=== PATIENT | female | born 1960 | race Caucasian/White ===

== ENCOUNTER 2021-07-13 16:50 | Inpatient (IN) | payer OTHER, SELFPAY ==
[2021-07-13] MEDS ORDERED: Ondansetron PF 4 MG/2 ML Vial IVP PRN (18:18)
[2021-07-13 19:36] LABS: ALT (SGPT) 45 U/L (8-55); AST (SGOT) 27 U/L (5-34); Albumin 3.2 g/dL (3.5-5.0); Alkaline Phosphatase 74 U/L (40-110); Anion Gap 19 mmol/L (10-20); BUN (Urea Nitrogen) 55 mg/dL (9.8-20.1); Bilirubin, Total 0.9 mg/dL (0.2-1.2); Calc. Creatinine Clearance 17 mL/min (70-130); Calcium 8.8 mg/dL (7.8-10.44); Carbon Dioxide 26 mmol/L (22-29); Chloride 103 mmol/L (98-107); Globulin 3.2 g/dL (2.4-3.5); Glucose 105 mg/dL (70-105); Potassium 3.2 mmol/L (3.5-5.1); Protein, Total 6.4 g/dL (6.0-8.3); Sodium 145 mmol/L (136-145)
[2021-07-14 04:30] LABS: Anion Gap 21 mmol/L (10-20); BUN (Urea Nitrogen) 57 mg/dL (9.8-20.1); Calc. Creatinine Clearance 16 mL/min (70-130); Calcium 9.1 mg/dL (7.8-10.44); Carbon Dioxide 21 mmol/L (22-29); Chloride 103 mmol/L (98-107); Glucose 95 mg/dL (70-105); Potassium 3.3 mmol/L (3.5-5.1); Sodium 142 mmol/L (136-145)
[2021-07-14] MEDS ORDERED: hydrALAZINE 20 MG/ML VIAL SLOW IVP PRN (05:21)
[2021-07-14] MEDS ORDERED: Potassium Bicarbonate/Cit Ac 20 MEQ TAB PO SCH (05:30)
[2021-07-14 05:46] LABS: Magnesium 1.9 mg/dL (1.6-2.6)
[2021-07-14] MEDS: Carvedilol 25 MG TAB PO SCH ×3 (05:57→22:37)
[2021-07-14 06:22] LABS: #Basophils 0.1 thou/uL (0.0-0.2); #Eosinphils 0.1 thou/uL (0.0-0.7); #Lymphocytes 1.3 thou/uL (1.20-3.40); #Neutrophils 10.2 thou/uL (1.40-6.50); %Basophils 0.4 % (0.0-1.0); %Eosinophils 0.6 % (0.0-10.0); %Lymphocytes 10.2 % (21.0-51.0); %Monocytes 8.1 % (0.0-10.0); %Neutrophils 80.6 % (42.0-75.0); Hemoglobin 13.2 g/dL (12.0-16.0); Mean Corpuscular HGB CONC 29.8 g/dL (32.0-36.0); Mean Corpuscular Hemoglobin 29.6 pg (27.0-31.0); Mean Corpuscular Volume 99.2 fL (78.0-98.0); Mean Platelet Volume 8.1 fL (7.4-10.4); Platelet Count 367 thou/uL (130-400); RBC Distribution Width 15.1 % (11.5-14.5); RBC Morphology Normal; Red Blood Cell (RBC) Count 4.45 mill/uL (4.20-5.40); White Blood Cell (WBC) Count 12.7 thou/uL (4.8-10.8)
[2021-07-14] MEDS ORDERED: Apixaban 5 MG TAB PO SCH (09:00)
[2021-07-14] MEDS: Amiodarone 200 MG TAB PO SCH ×2 (09:14→21:32)
[2021-07-14] MEDS: Polyethylene Glycol 3350 17 GM Packet PER TUBE SCH (09:14)
[2021-07-14] MEDS: hydrALAZINE 25 MG TAB PO SCH ×3 (09:14→21:33)
[2021-07-14] MEDS: Clopidogrel Bisulfate 75 MG TAB PO SCH (09:14)
[2021-07-14] MEDS ORDERED: Potassium Chloride 20 MEQ TAB PO SCH (09:27)
[2021-07-14 20:58] LABS: Anion Gap 18 mmol/L (10-20); BUN (Urea Nitrogen) 65 mg/dL (9.8-20.1); Calc. Creatinine Clearance 16 mL/min (70-130); Calcium 8.7 mg/dL (7.8-10.44); Carbon Dioxide 23 mmol/L (22-29); Chloride 105 mmol/L (98-107); Glucose 121 mg/dL (70-105); Potassium 3.7 mmol/L (3.5-5.1); Sodium 142 mmol/L (136-145)
[2021-07-14] MEDS: Furosemide 100 MG/10 ML VIAL SLOW IVP SCH (21:24)
[2021-07-14] MEDS: Apixaban 5 MG TAB PO SCH (21:33)
[2021-07-15 02:20] LABS: Bilirubin Negative (Negative); Blood, Urine 1+ (Negative); Clarity Turbid (Clear); Glucose, Urine (Dipstick) Normal (Negative); Ketone, Urine Negative (Negative); Leukocyte 500 Leu/uL (Negative); Nitrite Negative (Negative); Protein, Urine (Dipstick) 20 mg/dL (Neg-Trace); RBC/HPF Greater than 50 HPF (0-3); Specific Gravity, Urine 1.011 (1.002-1.036); Squamous Epithelial 0-3 HPF (0-3); Transitional Epithelial 0-3 HPF (None Seen); Urobilinogen Normal mg/dL (Less than 2); WBC/HPF Greater than 50 HPF (0-3)
[2021-07-15 02:22] LABS: Bacteria/HPF 1+ HPF (None Seen)
[2021-07-15] MEDS: Furosemide 100 MG/10 ML VIAL SLOW IVP SCH ×3 (03:53→21:07)
[2021-07-15 05:08] LABS: Calcium 9.2 mg/dL (7.8-10.44); Chloride 103 mmol/L (98-107); Cholesterol 183 mg/dl (< 200 Desired); Potassium 3.5 mmol/L (3.5-5.1); Sodium 140 mmol/L (136-145); Triglycerides 196 mg/dL (Less than 150)
[2021-07-15 05:09] LABS: #Eosinphils 0.2 thou/uL (0.0-0.7); #Lymphocytes 1.4 thou/uL (1.20-3.40); #Monocytes 1.1 thou/uL (0.11-0.59); #Neutrophils 9.1 thou/uL (1.40-6.50); %Basophils 0.3 % (0.0-1.0); %Eosinophils 1.3 % (0.0-10.0); %Lymphocytes 11.7 % (21.0-51.0); %Monocytes 9.1 % (0.0-10.0); %Neutrophils 77.7 % (42.0-75.0); Hemoglobin 11.8 g/dL (12.0-16.0); Mean Corpuscular HGB CONC 31.1 g/dL (32.0-36.0); Mean Corpuscular Hemoglobin 30.5 pg (27.0-31.0); Mean Corpuscular Volume 98.3 fL (78.0-98.0); Mean Platelet Volume 8.4 fL (7.4-10.4); Platelet Count 317 thou/uL (130-400); RBC Distribution Width 15.4 % (11.5-14.5); Red Blood Cell (RBC) Count 3.86 mill/uL (4.20-5.40); White Blood Cell (WBC) Count 11.7 thou/uL (4.8-10.8)
[2021-07-15 05:18] LABS: BUN (Urea Nitrogen) 65 mg/dL (9.8-20.1); Calc. Creatinine Clearance 17 mL/min (70-130); Carbon Dioxide 22 mmol/L (22-29); Glucose 123 mg/dL (70-105); HDL Cholesterol 33 mg/dL (>60 Neg Risk)
[2021-07-15] MEDS: Carvedilol 25 MG TAB PO SCH ×3 (06:14→21:09)
[2021-07-15 07:13] LABS: Anion Gap 25 mmol/L (10-20)
[2021-07-15 07:17] LABS: Cardiac Risk 5.4 (Less than 4.5); LDL Cholesterol, Calculated 113 mg/dL
[2021-07-15] MEDS: Polyethylene Glycol 3350 17 GM Packet PER TUBE SCH (08:32)
[2021-07-15] MEDS: Apixaban 5 MG TAB PO SCH ×2 (09:42→21:08)
[2021-07-15] MEDS: Amiodarone 200 MG TAB PO SCH ×2 (09:42→21:09)
[2021-07-15] MEDS: Clopidogrel Bisulfate 75 MG TAB PO SCH (09:42)
[2021-07-15] MEDS: hydrALAZINE 25 MG TAB PO SCH ×3 (09:42→21:09)
[2021-07-15] MEDS: cefTRIAXone\\ROCEPHIN 1 GM in Sodium Chloride 0.9% 100 ML IVPB SCH (11:28)
[2021-07-15] MEDS: Atorvastatin Calcium 40 MG TAB PER TUBE SCH (21:09)
[2021-07-16 05:02] LABS: #Basophils 0.1 thou/uL (0.0-0.2); #Eosinphils 0.1 thou/uL (0.0-0.7); #Lymphocytes 1.3 thou/uL (1.20-3.40); #Neutrophils 10.9 thou/uL (1.40-6.50); %Basophils 0.5 % (0.0-1.0); %Lymphocytes 9.7 % (21.0-51.0); %Monocytes 7.3 % (0.0-10.0); %Neutrophils 81.5 % (42.0-75.0); Hemoglobin 11.1 g/dL (12.0-16.0); Mean Corpuscular HGB CONC 32.1 g/dL (32.0-36.0); Mean Corpuscular Hemoglobin 30.8 pg (27.0-31.0); Mean Corpuscular Volume 95.9 fL (78.0-98.0); Mean Platelet Volume 8.2 fL (7.4-10.4); Platelet Count 322 thou/uL (130-400); RBC Distribution Width 15.1 % (11.5-14.5); Red Blood Cell (RBC) Count 3.61 mill/uL (4.20-5.40); White Blood Cell (WBC) Count 13.4 thou/uL (4.8-10.8)
[2021-07-16 05:19] LABS: Anion Gap 16 mmol/L (10-20); BUN (Urea Nitrogen) 85 mg/dL (9.8-20.1); Calc. Creatinine Clearance 17 mL/min (70-130); Calcium 9.1 mg/dL (7.8-10.44); Carbon Dioxide 30 mmol/L (22-29); Chloride 100 mmol/L (98-107); Glucose 135 mg/dL (70-105); Sodium 143 mmol/L (136-145)
[2021-07-16 05:21] LABS: Potassium 2.9 mmol/L (3.5-5.1)
[2021-07-16] MEDS ORDERED: Metoprolol Tartrate 5 MG/5 ML VIAL IVP PRN (05:57)
[2021-07-16] MEDS: Furosemide 100 MG/10 ML VIAL SLOW IVP SCH ×2 (06:05→14:22)
[2021-07-16] MEDS ORDERED: Electrolyte Replacement Protocol FS PRN ×2 (06:07→06:15)
[2021-07-16] MEDS: Carvedilol 25 MG TAB PO SCH ×3 (06:33→21:40)
[2021-07-16] MEDS ORDERED: Potassium Chloride 20 MEQ in Premix Bag 1 BAG IVPB SCH (09:00)
[2021-07-16] MEDS ORDERED: Albumin 25% 25 GM/100 ML BOT IVPB SCH (09:00)
[2021-07-16] MEDS: hydrALAZINE 25 MG TAB PO SCH ×4 (10:28→21:40)
[2021-07-16] MEDS: Clopidogrel Bisulfate 75 MG TAB PO SCH (10:28)
[2021-07-16] MEDS: Polyethylene Glycol 3350 17 GM Packet PER TUBE SCH (10:30)
[2021-07-16] MEDS: Amiodarone 200 MG TAB PO SCH ×2 (10:30→21:40)
[2021-07-16] MEDS: Apixaban 5 MG TAB PO SCH ×2 (10:30→21:40)
[2021-07-16] MEDS: Albumin 25% 25 GM/100 ML BOT IVPB SCH ×3 (10:31→23:13)
[2021-07-16 12:33] LABS: Anion Gap 16 mmol/L (10-20); BUN (Urea Nitrogen) 88 mg/dL (9.8-20.1); Calc. Creatinine Clearance 17 mL/min (70-130); Calcium 9.2 mg/dL (7.8-10.44); Carbon Dioxide 30 mmol/L (22-29); Chloride 97 mmol/L (98-107); Glucose 169 mg/dL (70-105); Sodium 140 mmol/L (136-145)
[2021-07-16] MEDS: cefTRIAXone\\ROCEPHIN 1 GM in Sodium Chloride 0.9% 100 ML IVPB SCH (12:34)
[2021-07-16 12:39] LABS: Potassium 2.7 mmol/L (3.5-5.1)
[2021-07-16] MEDS: Atorvastatin Calcium 40 MG TAB PER TUBE SCH (21:40)
[2021-07-17] MEDS: Albumin 25% 25 GM/100 ML BOT IVPB SCH (03:47)
[2021-07-17 04:27] LABS: #Basophils 0.1 thou/uL (0.0-0.2); #Eosinphils 0.2 thou/uL (0.0-0.7); #Monocytes 0.7 thou/uL (0.11-0.59); #Neutrophils 6.9 thou/uL (1.40-6.50); %Basophils 0.7 % (0.0-1.0); %Eosinophils 1.9 % (0.0-10.0); %Lymphocytes 11.6 % (21.0-51.0); %Monocytes 7.5 % (0.0-10.0); %Neutrophils 78.2 % (42.0-75.0); Hemoglobin 9.2 g/dL (12.0-16.0); Mean Corpuscular Hemoglobin 31.3 pg (27.0-31.0); Platelet Count 234 thou/uL (130-400); RBC Distribution Width 14.6 % (11.5-14.5); Red Blood Cell (RBC) Count 2.93 mill/uL (4.20-5.40); White Blood Cell (WBC) Count 8.9 thou/uL (4.8-10.8)
[2021-07-17 05:18] LABS: Anion Gap 19 mmol/L (10-20); BUN (Urea Nitrogen) 87 mg/dL (9.8-20.1); Calc. Creatinine Clearance 17 mL/min (70-130); Calcium 9.4 mg/dL (7.8-10.44); Carbon Dioxide 27 mmol/L (22-29); Chloride 99 mmol/L (98-107); Glucose 103 mg/dL (70-105); Magnesium 2.2 mg/dL (1.6-2.6); Sodium 142 mmol/L (136-145)
[2021-07-17 05:29] LABS: Potassium 2.8 mmol/L (3.5-5.1)
[2021-07-17] MEDS: Furosemide 100 MG/10 ML VIAL SLOW IVP SCH (06:26)
[2021-07-17] MEDS ORDERED: Potassium Chloride 20 MEQ TAB PO SCH (06:30)
[2021-07-17] MEDS ORDERED: Potassium Bicarbonate/Cit Ac 20 MEQ TAB PO SCH (06:30)
[2021-07-17] MEDS: Carvedilol 25 MG TAB PO SCH ×3 (06:32→22:08)
[2021-07-17] MEDS ORDERED: Furosemide 100 MG/10 ML VIAL SLOW IVP SCH (09:00)
[2021-07-17] MEDS: hydrALAZINE 25 MG TAB PO SCH ×3 (09:37→22:07)
[2021-07-17] MEDS: Amiodarone 200 MG TAB PO SCH ×2 (09:38→22:09)
[2021-07-17] MEDS: Polyethylene Glycol 3350 17 GM Packet PER TUBE SCH (09:39)
[2021-07-17] MEDS: Clopidogrel Bisulfate 75 MG TAB PO SCH (09:49)
[2021-07-17] MEDS: Apixaban 5 MG TAB PO SCH (09:49)
[2021-07-17] MEDS: cefTRIAXone\\ROCEPHIN 1 GM in Sodium Chloride 0.9% 100 ML IVPB SCH (11:16)
[2021-07-17 14:33] LABS: Potassium 3.2 mmol/L (3.5-5.1)
[2021-07-17] MEDS: Potassium Bicarbonate/Cit Ac 20 MEQ TAB PO SCH (18:12)
[2021-07-17] MEDS: Atorvastatin Calcium 40 MG TAB PER TUBE SCH (22:07)
[2021-07-18 04:50] LABS: #Basophils 0.1 thou/uL (0.0-0.2); #Eosinphils 0.1 thou/uL (0.0-0.7); #Lymphocytes 1.3 thou/uL (1.20-3.40); #Monocytes 0.8 thou/uL (0.11-0.59); #Neutrophils 8.8 thou/uL (1.40-6.50); %Basophils 0.6 % (0.0-1.0); %Lymphocytes 11.6 % (21.0-51.0); %Monocytes 7.3 % (0.0-10.0); %Neutrophils 79.6 % (42.0-75.0); Hemoglobin 9.5 g/dL (12.0-16.0); Mean Corpuscular HGB CONC 32.6 g/dL (32.0-36.0); Mean Platelet Volume 8.4 fL (7.4-10.4); Platelet Count 233 thou/uL (130-400); RBC Distribution Width 14.9 % (11.5-14.5); Red Blood Cell (RBC) Count 3.07 mill/uL (4.20-5.40); White Blood Cell (WBC) Count 11.1 thou/uL (4.8-10.8)
[2021-07-18] MEDS: Carvedilol 25 MG TAB PO SCH ×3 (05:43→20:30)
[2021-07-18 05:48] LABS: Chloride 101 mmol/L (98-107); Potassium 3.9 mmol/L (3.5-5.1); Sodium 141 mmol/L (136-145)
[2021-07-18 05:49] LABS: Glucose 122 mg/dL (70-105)
[2021-07-18 05:51] LABS: Carbon Dioxide 19 mmol/L (22-29)
[2021-07-18 05:53] LABS: BUN (Urea Nitrogen) 100 mg/dL (9.8-20.1); Calc. Creatinine Clearance 15 mL/min (70-130)
[2021-07-18 05:58] LABS: Anion Gap 25 mmol/L (10-20)
[2021-07-18] MEDS: Clopidogrel Bisulfate 75 MG TAB PO SCH (09:33)
[2021-07-18] MEDS: Potassium Bicarbonate/Cit Ac 20 MEQ TAB PO SCH ×2 (09:34→17:43)
[2021-07-18] MEDS: Amiodarone 200 MG TAB PO SCH ×2 (09:34→20:29)
[2021-07-18] MEDS: hydrALAZINE 25 MG TAB PO SCH ×3 (09:34→20:30)
[2021-07-18] MEDS: Sodium Chloride 0.9% 1,000 ML IV SCH ×2 (09:36→23:41)
[2021-07-18] MEDS: Polyethylene Glycol 3350 17 GM Packet PER TUBE SCH (09:37)
[2021-07-18] MEDS: cefTRIAXone\\ROCEPHIN 1 GM in Sodium Chloride 0.9% 100 ML IVPB SCH (11:20)
[2021-07-18] MEDS: Atorvastatin Calcium 40 MG TAB PER TUBE SCH (20:31)
[2021-07-19 04:35] LABS: #Eosinphils 0.1 thou/uL (0.0-0.7); #Lymphocytes 1.2 thou/uL (1.20-3.40); #Monocytes 0.8 thou/uL (0.11-0.59); #Neutrophils 7.9 thou/uL (1.40-6.50); %Basophils 0.2 % (0.0-1.0); %Eosinophils 1.4 % (0.0-10.0); %Lymphocytes 11.5 % (21.0-51.0); %Monocytes 8.3 % (0.0-10.0); %Neutrophils 78.7 % (42.0-75.0); Hemoglobin 9.1 g/dL (12.0-16.0); Mean Corpuscular Hemoglobin 30.1 pg (27.0-31.0); Mean Corpuscular Volume 97.1 fL (78.0-98.0); Mean Platelet Volume 8.6 fL (7.4-10.4); Platelet Count 197 thou/uL (130-400); RBC Distribution Width 14.7 % (11.5-14.5); Red Blood Cell (RBC) Count 3.01 mill/uL (4.20-5.40); White Blood Cell (WBC) Count 10.1 thou/uL (4.8-10.8)
[2021-07-19 04:51] LABS: Anion Gap 15 mmol/L (10-20); BUN (Urea Nitrogen) 95 mg/dL (9.8-20.1); Calc. Creatinine Clearance 19 mL/min (70-130); Calcium 9.5 mg/dL (7.8-10.44); Carbon Dioxide 27 mmol/L (22-29); Chloride 103 mmol/L (98-107); Glucose 122 mg/dL (70-105); Potassium 3.3 mmol/L (3.5-5.1); Sodium 142 mmol/L (136-145)
[2021-07-19] MEDS: Carvedilol 25 MG TAB PO SCH ×3 (06:05→22:05)
[2021-07-19] MEDS ORDERED: Midazolam HCl 2 mg/2 ml Vial ONE (08:33)
[2021-07-19] MEDS ORDERED: fentaNYL Citrate/PF 100 MCG/2 ML SYRINGE ONE (08:33)
[2021-07-19] MEDS: Amiodarone 200 MG TAB PO SCH ×2 (09:00→20:59)
[2021-07-19] MEDS: Sodium Chloride 0.9% 1,000 ML IV SCH ×3 (09:00→23:22)
[2021-07-19] MEDS: Potassium Bicarbonate/Cit Ac 20 MEQ TAB PO SCH ×2 (09:00→18:23)
[2021-07-19] MEDS: hydrALAZINE 25 MG TAB PO SCH ×3 (09:00→20:59)
[2021-07-19] MEDS ORDERED: Potassium Chloride 20 MEQ in Premix Bag 1 BAG IVPB SCH (09:00)
[2021-07-19] MEDS: Clopidogrel Bisulfate 75 MG TAB PO SCH (09:00)
[2021-07-19] MEDS: Polyethylene Glycol 3350 17 GM Packet PER TUBE SCH (09:01)
[2021-07-19] MEDS: cefTRIAXone\\ROCEPHIN 1 GM in Sodium Chloride 0.9% 100 ML IVPB SCH (14:00)
[2021-07-19] MEDS: Atorvastatin Calcium 40 MG TAB PER TUBE SCH (20:58)
[2021-07-20 05:10] LABS: Anion Gap 13 mmol/L (10-20); BUN (Urea Nitrogen) 86 mg/dL (9.8-20.1); Calc. Creatinine Clearance 21 mL/min (70-130); Carbon Dioxide 29 mmol/L (22-29); Chloride 108 mmol/L (98-107); Glucose 129 mg/dL (70-105); Potassium 3.5 mmol/L (3.5-5.1); Sodium 146 mmol/L (136-145)
[2021-07-20] MEDS: Carvedilol 25 MG TAB PO SCH ×3 (05:33→20:34)
[2021-07-20 05:42] LABS: Hemoglobin 8.7 g/dL (12.0-16.0); Lymphocytes 9 % (21-51); MDiff Complete? YES; Mean Corpuscular HGB CONC 31.8 g/dL (32.0-36.0); Mean Corpuscular Hemoglobin 30.9 pg (27.0-31.0); Mean Corpuscular Volume 97.1 fL (78.0-98.0); Mean Platelet Volume 9.3 fL (7.4-10.4); Monocytes 6 % (0-10); Neutrophil 85 % (42-75); Platelet Count 164 thou/uL (130-400); Platelet Morphology Comment Appears Adequate; RBC Distribution Width 14.6 % (11.5-14.5); RBC Morphology Normal; Red Blood Cell (RBC) Count 2.83 mill/uL (4.20-5.40); White Blood Cell (WBC) Count 9.7 thou/uL (4.8-10.8)
[2021-07-20] MEDS: Clopidogrel Bisulfate 75 MG TAB PO SCH (09:55)
[2021-07-20] MEDS: Amiodarone 200 MG TAB PO SCH ×2 (09:55→20:33)
[2021-07-20] MEDS: hydrALAZINE 25 MG TAB PO SCH ×3 (09:55→20:33)
[2021-07-20] MEDS: Potassium Bicarbonate/Cit Ac 20 MEQ TAB PO SCH ×2 (09:55→16:37)
[2021-07-20] MEDS: 1/2 NS w/KCL 20 mEq 1,000 ML IV SCH ×3 (09:56→21:41)
[2021-07-20] MEDS: Polyethylene Glycol 3350 17 GM Packet PER TUBE SCH (09:56)
[2021-07-20] MEDS: cefTRIAXone\\ROCEPHIN 1 GM in Sodium Chloride 0.9% 100 ML IVPB SCH (10:29)
[2021-07-20] MEDS: Atorvastatin Calcium 40 MG TAB PER TUBE SCH (20:34)
[2021-07-20] MEDS: Apixaban 5 MG TAB PO SCH (20:34)
[2021-07-20 23:44] LABS: Anion Gap 12 mmol/L (10-20); BUN (Urea Nitrogen) 76 mg/dL (9.8-20.1); Calc. Creatinine Clearance 24 mL/min (70-130); Calcium 8.8 mg/dL (7.8-10.44); Carbon Dioxide 26 mmol/L (22-29); Chloride 107 mmol/L (98-107); Glucose 186 mg/dL (70-105); Potassium 4.2 mmol/L (3.5-5.1); Sodium 141 mmol/L (136-145)
[2021-07-21 04:34] LABS: Hemoglobin 8.1 g/dL (12.0-16.0); Mean Corpuscular HGB CONC 32.1 g/dL (32.0-36.0); Mean Corpuscular Hemoglobin 30.9 pg (27.0-31.0); Mean Corpuscular Volume 96.4 fL (78.0-98.0); Platelet Count 159 thou/uL (130-400); RBC Distribution Width 14.7 % (11.5-14.5); Red Blood Cell (RBC) Count 2.61 mill/uL (4.20-5.40)
[2021-07-21 04:52] LABS: Anion Gap 11 mmol/L (10-20); BUN (Urea Nitrogen) 73 mg/dL (9.8-20.1); Calc. Creatinine Clearance 26 mL/min (70-130); Calcium 8.7 mg/dL (7.8-10.44); Carbon Dioxide 27 mmol/L (22-29); Chloride 110 mmol/L (98-107); Glucose 97 mg/dL (70-105); Potassium 4.3 mmol/L (3.5-5.1); Sodium 144 mmol/L (136-145)
[2021-07-21] MEDS: Carvedilol 25 MG TAB PO SCH ×3 (06:06→20:35)
[2021-07-21] MEDS: 1/2 NS w/KCL 20 mEq 1,000 ML IV SCH ×3 (09:26→20:35)
[2021-07-21] MEDS: Potassium Bicarbonate/Cit Ac 20 MEQ TAB PO SCH ×2 (09:27→17:08)
[2021-07-21] MEDS: hydrALAZINE 25 MG TAB PO SCH ×3 (09:27→20:35)
[2021-07-21] MEDS: Amiodarone 200 MG TAB PO SCH ×2 (09:27→20:35)
[2021-07-21] MEDS: Apixaban 5 MG TAB PO SCH ×2 (09:27→20:35)
[2021-07-21] MEDS: Clopidogrel Bisulfate 75 MG TAB PO SCH (09:27)
[2021-07-21] MEDS: Polyethylene Glycol 3350 17 GM Packet PER TUBE SCH (09:27)
[2021-07-21] MEDS: Atorvastatin Calcium 40 MG TAB PER TUBE SCH (20:35)
[2021-07-22 04:26] LABS: #Eosinphils 0.2 thou/uL (0.0-0.7); #Lymphocytes 1.3 thou/uL (1.20-3.40); #Neutrophils 7.5 thou/uL (1.40-6.50); %Basophils 0.3 % (0.0-1.0); %Eosinophils 1.9 % (0.0-10.0); %Lymphocytes 13.2 % (21.0-51.0); %Monocytes 9.8 % (0.0-10.0); %Neutrophils 74.8 % (42.0-75.0); Hemoglobin 7.8 g/dL (12.0-16.0); Mean Corpuscular HGB CONC 31.8 g/dL (32.0-36.0); Mean Corpuscular Hemoglobin 30.6 pg (27.0-31.0); Mean Corpuscular Volume 96.3 fL (78.0-98.0); Platelet Count 164 thou/uL (130-400); RBC Distribution Width 14.7 % (11.5-14.5); Red Blood Cell (RBC) Count 2.53 mill/uL (4.20-5.40)
[2021-07-22 04:49] LABS: Anion Gap 13 mmol/L (10-20); BUN (Urea Nitrogen) 55 mg/dL (9.8-20.1); Calc. Creatinine Clearance 31 mL/min (70-130); Calcium 8.7 mg/dL (7.8-10.44); Carbon Dioxide 24 mmol/L (22-29); Chloride 106 mmol/L (98-107); Glucose 113 mg/dL (70-105); Potassium 4.6 mmol/L (3.5-5.1); Sodium 138 mmol/L (136-145)
[2021-07-22] MEDS: Carvedilol 25 MG TAB PO SCH ×3 (05:56→21:22)
[2021-07-22] MEDS: 1/2 NS w/KCL 20 mEq 1,000 ML IV SCH (05:56)
[2021-07-22] MEDS: Clopidogrel Bisulfate 75 MG TAB PO SCH (10:45)
[2021-07-22] MEDS: Amiodarone 200 MG TAB PO SCH ×2 (10:45→21:22)
[2021-07-22] MEDS: Potassium Bicarbonate/Cit Ac 20 MEQ TAB PO SCH ×2 (10:45→17:07)
[2021-07-22] MEDS: Polyethylene Glycol 3350 17 GM Packet PER TUBE SCH (10:45)
[2021-07-22] MEDS: hydrALAZINE 25 MG TAB PO SCH ×3 (10:45→21:21)
[2021-07-22] MEDS ORDERED: Morphine 2 MG/ML VIAL SLOW IVP SCH (11:45)
[2021-07-22 13:50] LABS: Hemoglobin 7.6 g/dL (12.0-16.0)
[2021-07-22] MEDS: Atorvastatin Calcium 40 MG TAB PER TUBE SCH (21:22)
[2021-07-23] MEDS: 1/2 NS w/KCL 20 mEq 1,000 ML IV SCH ×2 (01:26→13:17)
[2021-07-23 04:51] LABS: Mean Corpuscular HGB CONC 32.8 g/dL (32.0-36.0); Mean Corpuscular Hemoglobin 31.6 pg (27.0-31.0); Mean Corpuscular Volume 96.4 fL (78.0-98.0); Mean Platelet Volume 9.3 fL (7.4-10.4); Platelet Count 183 thou/uL (130-400); RBC Distribution Width 15.1 % (11.5-14.5); Red Blood Cell (RBC) Count 2.53 mill/uL (4.20-5.40); White Blood Cell (WBC) Count 9.6 thou/uL (4.8-10.8)
[2021-07-23 05:19] LABS: Albumin 3.2 g/dL (3.5-5.0); Phosphorus 3.8 mg/dL (2.3-4.7)
[2021-07-23 05:20] LABS: Iron 31 ug/dL (50-170); Iron Binding Capacity, Total 180 mcg/dL (265-497)
[2021-07-23 05:21] LABS: Anion Gap 12 mmol/L (10-20); BUN (Urea Nitrogen) 49 mg/dL (9.8-20.1); Calc. Creatinine Clearance 36 mL/min (70-130); Calcium 8.8 mg/dL (7.8-10.44); Carbon Dioxide 23 mmol/L (22-29); Chloride 108 mmol/L (98-107); Glucose 111 mg/dL (70-105); Magnesium 2.1 mg/dL (1.6-2.6); Potassium 5.2 mmol/L (3.5-5.1); Sodium 138 mmol/L (136-145)
[2021-07-23] MEDS: Carvedilol 25 MG TAB PO SCH ×3 (05:36→23:33)
[2021-07-23] MEDS: Clopidogrel Bisulfate 75 MG TAB PO SCH (10:51)
[2021-07-23] MEDS: hydrALAZINE 25 MG TAB PO SCH ×3 (10:51→23:32)
[2021-07-23] MEDS: Amiodarone 200 MG TAB PO SCH ×2 (10:51→23:33)
[2021-07-23] MEDS: Sodium Bicarbonate Tab 325 MG TAB PER TUBE SCH ×2 (10:51→23:33)
[2021-07-23] MEDS: Polyethylene Glycol 3350 17 GM Packet PER TUBE SCH (10:51)
[2021-07-23] MEDS: Sodium Bicarbonate 50 MEQ in Sodium Chloride 0.45% 1,000 ML IV SCH (11:22)
[2021-07-23] MEDS ORDERED: EPOETIN ALFA-EPBX (NON-ESRD) 10,000 UNIT/ML VIAL SC SCH (15:00)
[2021-07-23] MEDS: Atorvastatin Calcium 40 MG TAB PER TUBE SCH (23:33)
[2021-07-24] MEDS: Sodium Bicarbonate 50 MEQ in Sodium Chloride 0.45% 1,000 ML IV SCH ×2 (04:31→22:56)
[2021-07-24 04:42] LABS: Hemoglobin 7.9 g/dL (12.0-16.0)
[2021-07-24 04:50] LABS: Anion Gap 12 mmol/L (10-20); BUN (Urea Nitrogen) 40 mg/dL (9.8-20.1); Calc. Creatinine Clearance 36 mL/min (70-130); Calcium 8.6 mg/dL (7.8-10.44); Carbon Dioxide 24 mmol/L (22-29); Chloride 109 mmol/L (98-107); Glucose 109 mg/dL (70-105); Potassium 4.5 mmol/L (3.5-5.1); Sodium 140 mmol/L (136-145)
[2021-07-24] MEDS: Carvedilol 25 MG TAB PO SCH ×3 (05:55→17:24)
[2021-07-24 09:52] LABS: Hemoglobin 7.8 g/dL (12.0-16.0)
[2021-07-24] MEDS ORDERED: Iron, Sodium Ferric Gluconate 250 MG in Sodium Chloride 0.9% 250 ML 250 ML IVPB SCH (10:00)
[2021-07-24] MEDS: Sodium Bicarbonate Tab 325 MG TAB PER TUBE SCH ×2 (10:28→21:16)
[2021-07-24] MEDS: hydrALAZINE 25 MG TAB PO SCH ×3 (10:29→21:16)
[2021-07-24] MEDS: Clopidogrel Bisulfate 75 MG TAB PO SCH (10:29)
[2021-07-24] MEDS: Amiodarone 200 MG TAB PO SCH ×2 (10:29→21:16)
[2021-07-24] MEDS: Polyethylene Glycol 3350 17 GM Packet PER TUBE SCH (10:30)
[2021-07-24] MEDS: Atorvastatin Calcium 40 MG TAB PER TUBE SCH (21:16)
[2021-07-25 04:20] LABS: Hemoglobin 7.6 g/dL (12.0-16.0)
[2021-07-25 04:32] LABS: Anion Gap 10 mmol/L (10-20); BUN (Urea Nitrogen) 34 mg/dL (9.8-20.1); Calc. Creatinine Clearance 39 mL/min (70-130); Calcium 8.5 mg/dL (7.8-10.44); Carbon Dioxide 26 mmol/L (22-29); Chloride 106 mmol/L (98-107); Glucose 122 mg/dL (70-105); Potassium 4.1 mmol/L (3.5-5.1); Sodium 138 mmol/L (136-145)
[2021-07-25] MEDS: Clopidogrel Bisulfate 75 MG TAB PO SCH (08:57)
[2021-07-25] MEDS: Carvedilol 25 MG TAB PO SCH (08:57)
[2021-07-25] MEDS: Amiodarone 200 MG TAB PO SCH ×2 (08:58→21:36)
[2021-07-25] MEDS: Sodium Bicarbonate Tab 325 MG TAB PER TUBE SCH ×2 (08:58→21:36)
[2021-07-25] MEDS: Polyethylene Glycol 3350 17 GM Packet PER TUBE SCH (08:58)
[2021-07-25] MEDS: Lansoprazole 3 MG/ML ORAL SUSPENSION PER TUBE SCH (08:58)
[2021-07-25] MEDS: hydrALAZINE 25 MG TAB PO SCH ×3 (08:58→21:36)
[2021-07-25] MEDS: Sodium Bicarbonate 50 MEQ in Sodium Chloride 0.45% 1,000 ML IV SCH (10:16)
[2021-07-25] MEDS ORDERED: Senokot S 8.6-50 MG TAB PER TUBE SCH (11:00)
[2021-07-25] MEDS: Acetaminophen 500 MG TAB PER TUBE PRN (11:18)
[2021-07-25] MEDS: Atorvastatin Calcium 40 MG TAB PER TUBE SCH (21:36)
[2021-07-25] MEDS: Senokot S 8.6-50 MG TAB PER TUBE SCH (21:36)
[2021-07-25] MEDS: Metoprolol Tartrate 50 MG TAB PO SCH (21:36)
[2021-07-26] MEDS: Sodium Bicarbonate 50 MEQ in Sodium Chloride 0.45% 1,000 ML IV SCH (04:37)
[2021-07-26 07:28] LABS: Hemoglobin 7.8 g/dL (12.0-16.0); Mean Corpuscular HGB CONC 31.7 g/dL (32.0-36.0); Mean Corpuscular Hemoglobin 30.9 pg (27.0-31.0); Mean Corpuscular Volume 97.5 fL (78.0-98.0); Mean Platelet Volume 8.7 fL (7.4-10.4); Platelet Count 226 thou/uL (130-400); RBC Distribution Width 15.2 % (11.5-14.5); Red Blood Cell (RBC) Count 2.52 mill/uL (4.20-5.40); White Blood Cell (WBC) Count 8.9 thou/uL (4.8-10.8)
[2021-07-26 07:42] LABS: Anion Gap 11 mmol/L (10-20); BUN (Urea Nitrogen) 28 mg/dL (9.8-20.1); BUN/Creatinine Ratio 15.47; Calc. Creatinine Clearance 41 mL/min (70-130); Calcium 8.4 mg/dL (7.8-10.44); Carbon Dioxide 28 mmol/L (22-29); Chloride 106 mmol/L (98-107); Glucose 140 mg/dL (70-105); Sodium 141 mmol/L (136-145)
[2021-07-26] MEDS ORDERED: Lidocaine 1% w/Epinephrine 1:100K 20 ML VIAL ONE (09:04)
[2021-07-26] MEDS: Metoprolol Tartrate 50 MG TAB PO SCH ×2 (09:07→21:57)
[2021-07-26] MEDS: Sodium Bicarbonate Tab 325 MG TAB PER TUBE SCH ×2 (09:07→21:56)
[2021-07-26] MEDS: Amiodarone 200 MG TAB PO SCH ×2 (09:08→21:58)
[2021-07-26] MEDS: Clopidogrel Bisulfate 75 MG TAB PO SCH (09:08)
[2021-07-26] MEDS: Polyethylene Glycol 3350 17 GM Packet PER TUBE SCH (09:08)
[2021-07-26] MEDS: Lansoprazole 3 MG/ML ORAL SUSPENSION PER TUBE SCH (09:08)
[2021-07-26] MEDS: hydrALAZINE 25 MG TAB PO SCH ×3 (09:08→21:58)
[2021-07-26] MEDS: Senokot S 8.6-50 MG TAB PER TUBE SCH ×2 (09:08→21:57)
[2021-07-26] MEDS ORDERED: Metoprolol Tartrate 25 MG TAB PO SCH (09:30)
[2021-07-26] MEDS: Atorvastatin Calcium 40 MG TAB PER TUBE SCH (21:58)
[2021-07-27 04:47] LABS: Albumin 3.1 g/dL (3.5-5.0); Anion Gap 13 mmol/L (10-20); BUN (Urea Nitrogen) 26 mg/dL (9.8-20.1); BUN/Creatinine Ratio 14.13; Calc. Creatinine Clearance 40 mL/min (70-130); Calcium 8.5 mg/dL (7.8-10.44); Carbon Dioxide 25 mmol/L (22-29); Chloride 106 mmol/L (98-107); Glucose 136 mg/dL (70-105); Phosphorus 3.9 mg/dL (2.3-4.7); Potassium 3.9 mmol/L (3.5-5.1); Sodium 140 mmol/L (136-145)
[2021-07-27] MEDS: Clopidogrel Bisulfate 75 MG TAB PO SCH (09:54)
[2021-07-27] MEDS: Sodium Bicarbonate Tab 325 MG TAB PER TUBE SCH ×2 (09:54→22:26)
[2021-07-27] MEDS: Amiodarone 200 MG TAB PO SCH ×2 (09:54→22:27)
[2021-07-27] MEDS: hydrALAZINE 25 MG TAB PO SCH ×3 (09:54→22:28)
[2021-07-27] MEDS: Senokot S 8.6-50 MG TAB PER TUBE SCH ×2 (09:55→22:26)
[2021-07-27] MEDS: Polyethylene Glycol 3350 17 GM Packet PER TUBE SCH (09:55)
[2021-07-27] MEDS: Metoprolol Tartrate 50 MG TAB PO SCH ×3 (09:55→22:27)
[2021-07-27] MEDS: Lansoprazole 3 MG/ML ORAL SUSPENSION PER TUBE SCH (09:55)
[2021-07-27] MEDS ORDERED: Sodium Chloride 0.9% 500 ML IV SCH (19:15)
[2021-07-27 19:54] LABS: Bacteria/HPF 4+ HPF (None Seen); Bilirubin Negative (Negative); Blood, Urine 3+ (Negative); Clarity Turbid (Clear); Glucose, Urine (Dipstick) Normal (Negative); Ketone, Urine Negative (Negative); Leukocyte 500 Leu/uL (Negative); Nitrite Negative (Negative); Protein, Urine (Dipstick) 70 mg/dL (Neg-Trace); Specific Gravity, Urine 1.011 (1.002-1.036); Squamous Epithelial 0-3 HPF (0-3); Urobilinogen Normal mg/dL (Less than 2); WBC/HPF Greater than 50 HPF (0-3); pH, Urine 7.5 (5.0-9.0)
[2021-07-27 19:55] LABS: Urine Culture Reflex Yes Yes
[2021-07-27 20:48] LABS: Troponin I 0.084 ng/mL (< 0.028)
[2021-07-27 20:49] LABS: Magnesium 2.1 mg/dL (1.6-2.6)
[2021-07-27] MEDS: Atorvastatin Calcium 40 MG TAB PER TUBE SCH (22:26)
[2021-07-27] MEDS ORDERED: Furosemide 20 MG/2 ML VIAL SLOW IVP SCH (22:30)
[2021-07-27 23:55] LABS: Actual Bicarbonate (HCO3a) 11.8 mEq/L (22-28); Base Excess (BEa) -12.6 mEq/L (-2.0 to +3.0); Calcium, Ionized (arterial) 1.06 mmol/L (1.12-1.30); Carboxyhemoglobin (COHb) 0.6 gm% (0.0-3.0); Hemoglobin (Hb) 9.1 g/dL (12.0-16.0); O2 Tension (PaO2), arterial 98.8 mmHg (> 80.0); Potassium - ABG Lab 4.93 mmol/L (3.70-5.30); pH, Arterial 7.33 (7.35-7.45)
[2021-07-27] MEDS ORDERED: cefTRIAXone\\ROCEPHIN 1 GM in Sodium Chloride 0.9% 100 ML IVPB SCH (23:59)
[2021-07-27] MEDS ORDERED: Furosemide 40 MG/4 ML VIAL SLOW IVP SCH (23:59)
[2021-07-28 00:03] LABS: CO2 Tension 22.8 mmHg (35.0-45.0)
[2021-07-28] MEDS ORDERED: Ziprasidone 20 MG VIAL IM SCH (00:45)
[2021-07-28] MEDS ORDERED: Sterile Water 10 ML VIAL FS PRN (00:45)
[2021-07-28] MEDS ORDERED: Lorazepam 2 MG/ML VIAL SLOW IVP SCH (00:45)
[2021-07-28 04:58] LABS: Hemoglobin 7.5 g/dL (12.0-16.0)
[2021-07-28 05:24] LABS: Troponin I 0.124 ng/mL (< 0.028)
[2021-07-28] MEDS ORDERED: Bisacodyl 10 MG SUPP PR PRN (08:23)
[2021-07-28] MEDS ORDERED: Loperamide HCl 2 MG CAP PER TUBE PRN (08:23)
[2021-07-28] MEDS ORDERED: GUAIFENESIN SF SOLN 200 MG/10 ML UDCUP PER TUBE PRN (08:23)
[2021-07-28] MEDS ORDERED: Calcium Carbonate 500 MG ChewTAB PER TUBE PRN (08:23)
[2021-07-28] MEDS ORDERED: Moisturizing Cream (Eucerin) 113 GM JAR TOP PRN (08:23)
[2021-07-28] MEDS ORDERED: Artificial Tear Sol 15 ML BOT EA EYE PRN (08:23)
[2021-07-28] MEDS ORDERED: Sodium Chloride 0.65% Nasal 44 ML BOT EA NARE PRN (08:23)
[2021-07-28] MEDS ORDERED: Budesonide 0.25 MG/2 ML NEB INH SCH (08:30)
[2021-07-28] MEDS ORDERED: Furosemide 40 MG/4 ML VIAL SLOW IVP SCH (08:30)
[2021-07-28] MEDS: Metoprolol Tartrate 50 MG TAB PO SCH ×2 (10:24→20:38)
[2021-07-28] MEDS: Sodium Bicarbonate Tab 325 MG TAB PER TUBE SCH ×2 (10:25→20:38)
[2021-07-28] MEDS: Amiodarone 200 MG TAB PO SCH ×2 (10:25→20:38)
[2021-07-28] MEDS: Clopidogrel Bisulfate 75 MG TAB PO SCH (10:25)
[2021-07-28] MEDS: Polyethylene Glycol 3350 17 GM Packet PER TUBE SCH (10:25)
[2021-07-28] MEDS: Senokot S 8.6-50 MG TAB PER TUBE SCH ×2 (10:25→20:38)
[2021-07-28] MEDS: Cefepime 1 GM in Sodium Chloride 0.9% 100 ML IVPB SCH ×2 (10:26→20:38)
[2021-07-28] MEDS: Lansoprazole 3 MG/ML ORAL SUSPENSION PER TUBE SCH (10:28)
[2021-07-28] MEDS: Furosemide 40 MG/4 ML VIAL SLOW IVP SCH (17:06)
[2021-07-28] MEDS: Budesonide 0.5 MG/2 ML NEB NEB SCH (18:12)
[2021-07-28] MEDS: Atorvastatin Calcium 40 MG TAB PER TUBE SCH (20:38)
[2021-07-29 05:06] LABS: ALT (SGPT) 36 U/L (8-55); AST (SGOT) 53 U/L (5-34); Alkaline Phosphatase 129 U/L (40-110); Anion Gap 11 mmol/L (10-20); BUN (Urea Nitrogen) 42 mg/dL (9.8-20.1); Bilirubin, Total 0.5 mg/dL (0.2-1.2); Calc. Creatinine Clearance 24 mL/min (70-130); Calcium 7.8 mg/dL (7.8-10.44); Carbon Dioxide 28 mmol/L (22-29); Chloride 105 mmol/L (98-107); Globulin 2.9 g/dL (2.4-3.5); Glucose 118 mg/dL (70-105); Magnesium 2.2 mg/dL (1.6-2.6); Phosphorus 4.6 mg/dL (2.3-4.7); Potassium 3.2 mmol/L (3.5-5.1); Protein, Total 5.9 g/dL (6.0-8.3); Sodium 141 mmol/L (136-145)
[2021-07-29 06:05] LABS: #Eosinphils 0.3 thou/uL (0.0-0.7); #Lymphocytes 1.8 thou/uL (1.20-3.40); #Monocytes 0.5 thou/uL (0.11-0.59); #Neutrophils 6.6 thou/uL (1.40-6.50); %Basophils 0.5 % (0.0-1.0); %Eosinophils 3.3 % (0.0-10.0); %Lymphocytes 19.5 % (21.0-51.0); %Monocytes 4.9 % (0.0-10.0); %Neutrophils 71.7 % (42.0-75.0); Anisocytosis SLIGHT = 6-15 cells (100X) (0-5/hpf); Hemoglobin 7.6 g/dL (12.0-16.0); MDiff Complete? YES; Mean Corpuscular HGB CONC 34.2 g/dL (32.0-36.0); Mean Corpuscular Hemoglobin 32.2 pg (27.0-31.0); Mean Corpuscular Volume 94.2 fL (78.0-98.0); Mean Platelet Volume 7.8 fL (7.4-10.4); Platelet Count 163 thou/uL (130-400); RBC Distribution Width 16.1 % (11.5-14.5); Red Blood Cell (RBC) Count 2.37 mill/uL (4.20-5.40); White Blood Cell (WBC) Count 9.1 thou/uL (4.8-10.8)
[2021-07-29] MEDS: Budesonide 0.5 MG/2 ML NEB NEB SCH ×2 (06:57→18:05)
[2021-07-29] MEDS ORDERED: Potassium Chloride 20 MEQ TAB PER TUBE SCH (09:00)
[2021-07-29] MEDS: Lansoprazole 3 MG/ML ORAL SUSPENSION PER TUBE SCH (09:39)
[2021-07-29] MEDS: Furosemide 40 MG/4 ML VIAL SLOW IVP SCH (09:39)
[2021-07-29] MEDS: Cefepime 1 GM in Sodium Chloride 0.9% 100 ML IVPB SCH (09:40)
[2021-07-29] MEDS: Senokot S 8.6-50 MG TAB PER TUBE SCH ×2 (09:41→21:11)
[2021-07-29] MEDS: Clopidogrel Bisulfate 75 MG TAB PER TUBE SCH (09:41)
[2021-07-29] MEDS: Sodium Bicarbonate Tab 325 MG TAB PER TUBE SCH ×2 (09:41→21:10)
[2021-07-29] MEDS: Folic Acid/Vit B Comp W-C PER TUBE SCH (09:42)
[2021-07-29] MEDS: Amiodarone 200 MG TAB PER TUBE SCH ×2 (09:42→21:11)
[2021-07-29] MEDS: Metoprolol Tartrate 50 MG TAB PER TUBE SCH ×2 (09:42→21:11)
[2021-07-29] MEDS: Polyethylene Glycol 3350 17 GM Packet PER TUBE SCH (09:43)
[2021-07-29] MEDS ORDERED: Albumin 25% 25 GM/100 ML BOT IVPB SCH (11:00)
[2021-07-29] MEDS: Acetaminophen 500 MG TAB PER TUBE PRN (15:17)
[2021-07-29] MEDS: Atorvastatin Calcium 40 MG TAB PER TUBE SCH (21:11)
[2021-07-30 05:11] LABS: Band 4 % (5-11); Hemoglobin 7.5 g/dL (12.0-16.0); Lymphocytes 16 % (21-51); MDiff Complete? YES; Mean Corpuscular HGB CONC 32.1 g/dL (32.0-36.0); Mean Corpuscular Hemoglobin 31.2 pg (27.0-31.0); Mean Corpuscular Volume 97.2 fL (78.0-98.0); Mean Platelet Volume 7.9 fL (7.4-10.4); Monocytes 2 % (0-10); Neutrophil 78 % (42-75); Platelet Count 165 thou/uL (130-400); RBC Distribution Width 16.2 % (11.5-14.5); White Blood Cell (WBC) Count 8.3 thou/uL (4.8-10.8)
[2021-07-30 05:12] LABS: Anion Gap 14 mmol/L (10-20); BUN (Urea Nitrogen) 38 mg/dL (9.8-20.1); Calc. Creatinine Clearance 27 mL/min (70-130); Calcium 8.3 mg/dL (7.8-10.44); Carbon Dioxide 25 mmol/L (22-29); Chloride 105 mmol/L (98-107); Glucose 136 mg/dL (70-105); Potassium 3.4 mmol/L (3.5-5.1); Sodium 141 mmol/L (136-145)
[2021-07-30] MEDS: Budesonide 0.5 MG/2 ML NEB NEB SCH (07:02)
[2021-07-30] MEDS ORDERED: Potassium Chloride 20 MEQ TAB PER TUBE SCH (07:45)
[2021-07-30] MEDS: Clopidogrel Bisulfate 75 MG TAB PER TUBE SCH (08:55)
[2021-07-30] MEDS: Metoprolol Tartrate 50 MG TAB PER TUBE SCH ×2 (08:55→21:05)
[2021-07-30] MEDS: Senokot S 8.6-50 MG TAB PER TUBE SCH ×2 (08:56→21:05)
[2021-07-30] MEDS: Amiodarone 200 MG TAB PER TUBE SCH ×2 (08:56→21:04)
[2021-07-30] MEDS: Folic Acid/Vit B Comp W-C PER TUBE SCH (08:56)
[2021-07-30] MEDS: Cefepime 1 GM in Sodium Chloride 0.9% 100 ML IVPB SCH (09:06)
[2021-07-30] MEDS: Polyethylene Glycol 3350 17 GM Packet PER TUBE SCH (09:08)
[2021-07-30] MEDS: Lansoprazole 3 MG/ML ORAL SUSPENSION PER TUBE SCH (09:54)
[2021-07-30] MEDS: Sodium Bicarbonate Tab 325 MG TAB PER TUBE SCH ×2 (09:54→21:05)
[2021-07-30] MEDS ORDERED: Budesonide 0.5 MG/2 ML NEB NEB PRN (10:48)
[2021-07-30] MEDS ORDERED: Meropenem 1 GM in Sodium Chloride 0.9% 100 ML IVPB SCH (19:00)
[2021-07-30] MEDS ORDERED: Meropenem 500 MG in Sodium Chloride 0.9% 100 ML IVPB SCH (21:00)
[2021-07-30] MEDS: Apixaban 5 MG TAB PO SCH (21:04)
[2021-07-30] MEDS: Atorvastatin Calcium 40 MG TAB PER TUBE SCH (21:05)
[2021-07-31] MEDS: Meropenem 500 MG in Sodium Chloride 0.9% 100 ML IVPB SCH ×2 (03:28→14:15)
[2021-07-31] MEDS: Epoetin (NON-ESRD) 10,000 UNITS/ML VIAL SC SCH (05:39)
[2021-07-31 05:50] LABS: Anion Gap 15 mmol/L (10-20); BUN (Urea Nitrogen) 29 mg/dL (9.8-20.1); Calc. Creatinine Clearance 32 mL/min (70-130); Calcium 8.4 mg/dL (7.8-10.44); Carbon Dioxide 24 mmol/L (22-29); Chloride 105 mmol/L (98-107); Glucose 138 mg/dL (70-105); Potassium 3.7 mmol/L (3.5-5.1); Sodium 140 mmol/L (136-145)
[2021-07-31 06:00] LABS: Band 9 % (5-11); Hemoglobin 7.9 g/dL (12.0-16.0); Lymphocytes 5 % (21-51); MDiff Complete? YES; Mean Corpuscular HGB CONC 32.8 g/dL (32.0-36.0); Mean Corpuscular Hemoglobin 31.6 pg (27.0-31.0); Mean Corpuscular Volume 96.6 fL (78.0-98.0); Mean Platelet Volume 8.2 fL (7.4-10.4); Monocytes 6 % (0-10); Neutrophil 80 % (42-75); Platelet Count 178 thou/uL (130-400); RBC Distribution Width 16.9 % (11.5-14.5); White Blood Cell (WBC) Count 8.8 thou/uL (4.8-10.8)
[2021-07-31] MEDS: Sodium Bicarbonate Tab 325 MG TAB PER TUBE SCH ×2 (09:22→21:14)
[2021-07-31] MEDS: Metoprolol Tartrate 50 MG TAB PER TUBE SCH ×2 (09:22→21:09)
[2021-07-31] MEDS: Senokot S 8.6-50 MG TAB PER TUBE SCH ×2 (09:22→21:09)
[2021-07-31] MEDS: Apixaban 5 MG TAB PO SCH ×2 (09:22→21:09)
[2021-07-31] MEDS: Clopidogrel Bisulfate 75 MG TAB PER TUBE SCH (09:22)
[2021-07-31] MEDS: Amiodarone 200 MG TAB PER TUBE SCH ×2 (09:22→21:09)
[2021-07-31] MEDS: Folic Acid/Vit B Comp W-C PER TUBE SCH (09:22)
[2021-07-31] MEDS: Polyethylene Glycol 3350 17 GM Packet PER TUBE SCH (09:23)
[2021-07-31] MEDS: Lansoprazole 3 MG/ML ORAL SUSPENSION PER TUBE SCH (14:05)
[2021-07-31] MEDS: Atorvastatin Calcium 40 MG TAB PER TUBE SCH (21:09)
[2021-08-01] MEDS: Meropenem 500 MG in Sodium Chloride 0.9% 100 ML IVPB SCH ×2 (03:57→14:20)
[2021-08-01 06:54] LABS: Anion Gap 14 mmol/L (10-20); BUN (Urea Nitrogen) 30 mg/dL (9.8-20.1); Calc. Creatinine Clearance 38 mL/min (70-130); Calcium 8.2 mg/dL (7.8-10.44); Carbon Dioxide 26 mmol/L (22-29); Chloride 105 mmol/L (98-107); Glucose 97 mg/dL (70-105); Potassium 3.7 mmol/L (3.5-5.1); Sodium 141 mmol/L (136-145)
[2021-08-01 06:56] LABS: Mean Corpuscular Hemoglobin 32.1 pg (27.0-31.0); Mean Corpuscular Volume 97.2 fL (78.0-98.0); Mean Platelet Volume 7.9 fL (7.4-10.4); Platelet Count 166 thou/uL (130-400); RBC Distribution Width 17.3 % (11.5-14.5); White Blood Cell (WBC) Count 7.6 thou/uL (4.8-10.8)
[2021-08-01 06:59] LABS: Band 2 % (5-11); Eosinophils 5 % (0-10); Lymphocytes 21 % (21-51); MDiff Complete? YES; Monocytes 3 % (0-10); Myelocyte 1 % (0-0); Neutrophil 68 % (42-75); Nucleated RBC 1 % (0); Polychromasia SLIGHT = 2-3 cells (100X) (0-2/hpf)
[2021-08-01] MEDS: Sodium Bicarbonate Tab 325 MG TAB PER TUBE SCH ×2 (09:47→20:37)
[2021-08-01] MEDS: Folic Acid/Vit B Comp W-C PER TUBE SCH (09:48)
[2021-08-01] MEDS: Amiodarone 200 MG TAB PER TUBE SCH ×2 (09:48→20:37)
[2021-08-01] MEDS: Metoprolol Tartrate 50 MG TAB PER TUBE SCH ×2 (09:48→20:37)
[2021-08-01] MEDS: Clopidogrel Bisulfate 75 MG TAB PER TUBE SCH (09:48)
[2021-08-01] MEDS: Apixaban 5 MG TAB PO SCH ×2 (09:48→20:37)
[2021-08-01] MEDS: Polyethylene Glycol 3350 17 GM Packet PER TUBE SCH (09:49)
[2021-08-01] MEDS: Senokot S 8.6-50 MG TAB PER TUBE SCH ×2 (09:50→20:37)
[2021-08-01] MEDS: Acetaminophen 500 MG TAB PER TUBE PRN (12:14)
[2021-08-01] MEDS: Lansoprazole 3 MG/ML ORAL SUSPENSION PER TUBE SCH (12:20)
[2021-08-01] MEDS: Atorvastatin Calcium 40 MG TAB PER TUBE SCH (20:37)
[2021-08-02] MEDS: Meropenem 500 MG in Sodium Chloride 0.9% 100 ML IVPB SCH ×2 (02:36→15:38)
[2021-08-02] MEDS: Amiodarone 200 MG TAB PER TUBE SCH ×2 (09:33→20:59)
[2021-08-02] MEDS: Lansoprazole 3 MG/ML ORAL SUSPENSION PER TUBE SCH (09:33)
[2021-08-02] MEDS: Sodium Bicarbonate Tab 325 MG TAB PER TUBE SCH ×2 (09:33→21:00)
[2021-08-02] MEDS: Folic Acid/Vit B Comp W-C PER TUBE SCH (09:34)
[2021-08-02] MEDS: Metoprolol Tartrate 50 MG TAB PER TUBE SCH ×2 (09:34→21:00)
[2021-08-02] MEDS: Senokot S 8.6-50 MG TAB PER TUBE SCH ×3 (09:34→21:00)
[2021-08-02] MEDS: Clopidogrel Bisulfate 75 MG TAB PER TUBE SCH (09:34)
[2021-08-02] MEDS: Apixaban 5 MG TAB PO SCH ×2 (09:34→21:00)
[2021-08-02] MEDS: Polyethylene Glycol 3350 17 GM Packet PER TUBE SCH ×2 (09:35→10:01)
[2021-08-02] MEDS: Atorvastatin Calcium 40 MG TAB PER TUBE SCH (20:59)
[2021-08-03] MEDS: Meropenem 500 MG in Sodium Chloride 0.9% 100 ML IVPB SCH ×2 (02:31→14:20)
[2021-08-03 06:57] LABS: Anion Gap 14 mmol/L (10-20); BUN (Urea Nitrogen) 42 mg/dL (9.8-20.1); Calc. Creatinine Clearance 36 mL/min (70-130); Calcium 8.3 mg/dL (7.8-10.44); Carbon Dioxide 27 mmol/L (22-29); Chloride 102 mmol/L (98-107); Glucose 127 mg/dL (70-105); Potassium 3.8 mmol/L (3.5-5.1); Sodium 139 mmol/L (136-145)
[2021-08-03 07:33] LABS: #Basophils 0.1 thou/uL (0.0-0.2); #Eosinphils 0.2 thou/uL (0.0-0.7); #Lymphocytes 1.8 thou/uL (1.20-3.40); #Monocytes 0.7 thou/uL (0.11-0.59); #Neutrophils 6.8 thou/uL (1.40-6.50); %Basophils 0.7 % (0.0-1.0); %Eosinophils 2.2 % (0.0-10.0); %Lymphocytes 19.2 % (21.0-51.0); %Monocytes 7.6 % (0.0-10.0); %Neutrophils 70.4 % (42.0-75.0); Hemoglobin 8.3 g/dL (12.0-16.0); Hypochromia SLIGHT = 6-15 cells (100X) (0-5/hpf); MDiff Complete? YES; Mean Corpuscular HGB CONC 31.3 g/dL (32.0-36.0); Mean Corpuscular Hemoglobin 31.2 pg (27.0-31.0); Mean Corpuscular Volume 99.9 fL (78.0-98.0); Mean Platelet Volume 7.8 fL (7.4-10.4); Ovalocytes SLIGHT = 2-5 cells (100X) (0-1/hpf); Platelet Count 220 thou/uL (130-400); Platelet Morphology Comment Appears Adequate; Polychromasia MODERATE = 3-4 cells (100X) (0-2/hpf); RBC Distribution Width 20.3 % (11.5-14.5); Red Blood Cell (RBC) Count 2.67 mill/uL (4.20-5.40); White Blood Cell (WBC) Count 9.6 thou/uL (4.8-10.8)
[2021-08-03] MEDS: Lansoprazole 3 MG/ML ORAL SUSPENSION PER TUBE SCH (08:23)
[2021-08-03] MEDS: Amiodarone 200 MG TAB PER TUBE SCH ×2 (08:23→21:28)
[2021-08-03] MEDS: Metoprolol Tartrate 50 MG TAB PER TUBE SCH ×2 (08:23→21:29)
[2021-08-03] MEDS: Folic Acid/Vit B Comp W-C PER TUBE SCH (08:23)
[2021-08-03] MEDS: Clopidogrel Bisulfate 75 MG TAB PER TUBE SCH (08:23)
[2021-08-03] MEDS: Polyethylene Glycol 3350 17 GM Packet PER TUBE SCH (08:24)
[2021-08-03] MEDS: Senokot S 8.6-50 MG TAB PER TUBE SCH ×2 (08:24→21:29)
[2021-08-03] MEDS: Apixaban 5 MG TAB PO SCH ×2 (08:24→21:29)
[2021-08-03] MEDS: Sodium Bicarbonate Tab 325 MG TAB PER TUBE SCH ×2 (08:51→21:28)
[2021-08-03] MEDS: Atorvastatin Calcium 40 MG TAB PER TUBE SCH (21:29)
[2021-08-04] MEDS: Meropenem 500 MG in Sodium Chloride 0.9% 100 ML IVPB SCH ×2 (02:12→16:02)
[2021-08-04 06:19] LABS: Anisocytosis SLIGHT = 6-15 cells (100X) (0-5/hpf); Band 3 % (5-11); Hemoglobin 8.9 g/dL (12.0-16.0); Hypochromia SLIGHT = 6-15 cells (100X) (0-5/hpf); Lymphocytes 20 % (21-51); MDiff Complete? YES; Macrocytosis MODERATE=16-30 cells (100X) (0-5/hpf); Mean Corpuscular HGB CONC 31.7 g/dL (32.0-36.0); Mean Corpuscular Hemoglobin 32.1 pg (27.0-31.0); Mean Platelet Volume 7.8 fL (7.4-10.4); Monocytes 6 % (0-10); Neutrophil 70 % (42-75); Ovalocytes SLIGHT = 2-5 cells (100X) (0-1/hpf); Platelet Count 216 thou/uL (130-400); Platelet Morphology Comment Appears Adequate; Polychromasia SLIGHT = 2-3 cells (100X) (0-2/hpf); RBC Distribution Width 21.4 % (11.5-14.5); Red Blood Cell (RBC) Count 2.77 mill/uL (4.20-5.40); White Blood Cell (WBC) Count 9.9 thou/uL (4.8-10.8)
[2021-08-04 06:30] LABS: Anion Gap 15 mmol/L (10-20); BUN (Urea Nitrogen) 49 mg/dL (9.8-20.1); Calc. Creatinine Clearance 37 mL/min (70-130); Calcium 8.5 mg/dL (7.8-10.44); Carbon Dioxide 26 mmol/L (22-29); Chloride 102 mmol/L (98-107); Glucose 122 mg/dL (70-105); Potassium 3.6 mmol/L (3.5-5.1); Sodium 139 mmol/L (136-145)
[2021-08-04] MEDS: Polyethylene Glycol 3350 17 GM Packet PER TUBE SCH (09:40)
[2021-08-04] MEDS: Clopidogrel Bisulfate 75 MG TAB PER TUBE SCH (09:40)
[2021-08-04] MEDS: Folic Acid/Vit B Comp W-C PER TUBE SCH (09:41)
[2021-08-04] MEDS: Apixaban 5 MG TAB PO SCH ×2 (09:41→21:10)
[2021-08-04] MEDS: Metoprolol Tartrate 50 MG TAB PER TUBE SCH ×2 (09:41→21:09)
[2021-08-04] MEDS: Sodium Bicarbonate Tab 325 MG TAB PER TUBE SCH ×2 (09:41→21:09)
[2021-08-04] MEDS: Amiodarone 200 MG TAB PER TUBE SCH ×2 (09:41→21:10)
[2021-08-04] MEDS: Senokot S 8.6-50 MG TAB PER TUBE SCH ×2 (10:39→21:10)
[2021-08-04] MEDS: Lansoprazole 3 MG/ML ORAL SUSPENSION PER TUBE SCH (12:07)
[2021-08-04] MEDS: Atorvastatin Calcium 40 MG TAB PER TUBE SCH (21:10)
[2021-08-05] MEDS: Meropenem 500 MG in Sodium Chloride 0.9% 100 ML IVPB SCH ×2 (02:20→14:12)
[2021-08-05] MEDS: Polyethylene Glycol 3350 17 GM Packet PER TUBE SCH (08:43)
[2021-08-05] MEDS: Folic Acid/Vit B Comp W-C PER TUBE SCH (08:44)
[2021-08-05] MEDS: Amiodarone 200 MG TAB PER TUBE SCH ×2 (08:44→20:31)
[2021-08-05] MEDS: Senokot S 8.6-50 MG TAB PER TUBE SCH ×2 (08:44→20:32)
[2021-08-05] MEDS: Apixaban 5 MG TAB PO SCH ×2 (08:44→20:31)
[2021-08-05] MEDS: Metoprolol Tartrate 50 MG TAB PER TUBE SCH ×2 (08:44→20:30)
[2021-08-05] MEDS: Clopidogrel Bisulfate 75 MG TAB PER TUBE SCH (08:44)
[2021-08-05] MEDS: Sodium Bicarbonate Tab 325 MG TAB PER TUBE SCH ×2 (08:44→20:31)
[2021-08-05] MEDS: Lansoprazole 3 MG/ML ORAL SUSPENSION PER TUBE SCH (14:12)
[2021-08-05] MEDS: Acetaminophen 500 MG TAB PER TUBE PRN (20:31)
[2021-08-05] MEDS: Atorvastatin Calcium 40 MG TAB PER TUBE SCH (20:32)
[2021-08-06 06:24] LABS: Anion Gap 14 mmol/L (10-20); BUN (Urea Nitrogen) 46 mg/dL (9.8-20.1); Calc. Creatinine Clearance 44 mL/min (70-130); Calcium 8.3 mg/dL (7.8-10.44); Carbon Dioxide 27 mmol/L (22-29); Chloride 105 mmol/L (98-107); Glucose 111 mg/dL (70-105); Potassium 3.5 mmol/L (3.5-5.1); Sodium 142 mmol/L (136-145)
[2021-08-06 06:26] LABS: #Eosinphils 0.1 thou/uL (0.0-0.7); #Lymphocytes 1.3 thou/uL (1.20-3.40); #Monocytes 0.6 thou/uL (0.11-0.59); #Neutrophils 5.6 thou/uL (1.40-6.50); %Basophils 0.3 % (0.0-1.0); %Eosinophils 1.8 % (0.0-10.0); %Lymphocytes 17.5 % (21.0-51.0); %Monocytes 7.6 % (0.0-10.0); %Neutrophils 72.8 % (42.0-75.0); Hemoglobin 8.6 g/dL (12.0-16.0); Mean Corpuscular HGB CONC 30.5 g/dL (32.0-36.0); Mean Corpuscular Hemoglobin 31.5 pg (27.0-31.0); Mean Platelet Volume 7.8 fL (7.4-10.4); Platelet Count 207 thou/uL (130-400); RBC Distribution Width 22.5 % (11.5-14.5); Red Blood Cell (RBC) Count 2.72 mill/uL (4.20-5.40); White Blood Cell (WBC) Count 7.6 thou/uL (4.8-10.8)
[2021-08-06] MEDS: Amiodarone 200 MG TAB PER TUBE SCH ×2 (08:21→20:33)
[2021-08-06] MEDS: Metoprolol Tartrate 50 MG TAB PER TUBE SCH ×2 (08:21→20:33)
[2021-08-06] MEDS: Sodium Bicarbonate Tab 325 MG TAB PER TUBE SCH ×2 (08:21→20:33)
[2021-08-06] MEDS: Clopidogrel Bisulfate 75 MG TAB PER TUBE SCH (08:21)
[2021-08-06] MEDS: Folic Acid/Vit B Comp W-C PER TUBE SCH (08:21)
[2021-08-06] MEDS: Apixaban 5 MG TAB PO SCH ×2 (08:21→20:33)
[2021-08-06] MEDS: Polyethylene Glycol 3350 17 GM Packet PER TUBE SCH (08:21)
[2021-08-06] MEDS: Senokot S 8.6-50 MG TAB PER TUBE SCH ×2 (08:21→20:33)
[2021-08-06] MEDS: Lansoprazole 3 MG/ML ORAL SUSPENSION PER TUBE SCH (10:19)
[2021-08-06] MEDS: Epoetin (NON-ESRD) 10,000 UNITS/ML VIAL SC SCH (13:37)
[2021-08-06] MEDS: Atorvastatin Calcium 40 MG TAB PER TUBE SCH (20:33)
[2021-08-07] MEDS: Sodium Bicarbonate Tab 325 MG TAB PER TUBE SCH ×2 (09:15→20:10)
[2021-08-07] MEDS: Folic Acid/Vit B Comp W-C PER TUBE SCH (09:15)
[2021-08-07] MEDS: Amiodarone 200 MG TAB PER TUBE SCH ×2 (09:15→20:10)
[2021-08-07] MEDS: Polyethylene Glycol 3350 17 GM Packet PER TUBE SCH (09:15)
[2021-08-07] MEDS: Lansoprazole 3 MG/ML ORAL SUSPENSION PER TUBE SCH (09:15)
[2021-08-07] MEDS: Metoprolol Tartrate 50 MG TAB PER TUBE SCH ×2 (09:16→20:10)
[2021-08-07] MEDS: Senokot S 8.6-50 MG TAB PER TUBE SCH ×2 (09:16→20:11)
[2021-08-07] MEDS: Apixaban 5 MG TAB PO SCH ×2 (09:16→20:10)
[2021-08-07] MEDS: Clopidogrel Bisulfate 75 MG TAB PER TUBE SCH (09:16)
[2021-08-07] MEDS: Atorvastatin Calcium 40 MG TAB PER TUBE SCH (20:10)
[2021-08-08] MEDS: Folic Acid/Vit B Comp W-C PER TUBE SCH (07:52)
[2021-08-08] MEDS: Senokot S 8.6-50 MG TAB PER TUBE SCH ×2 (07:52→21:35)
[2021-08-08] MEDS: Amiodarone 200 MG TAB PER TUBE SCH ×2 (07:52→21:35)
[2021-08-08] MEDS: Polyethylene Glycol 3350 17 GM Packet PER TUBE SCH (07:52)
[2021-08-08] MEDS: Clopidogrel Bisulfate 75 MG TAB PER TUBE SCH (07:52)
[2021-08-08] MEDS: Apixaban 5 MG TAB PO SCH ×2 (07:52→21:34)
[2021-08-08] MEDS: Metoprolol Tartrate 50 MG TAB PER TUBE SCH ×2 (07:52→21:34)
[2021-08-08] MEDS: Sodium Bicarbonate Tab 325 MG TAB PER TUBE SCH ×2 (07:52→21:44)
[2021-08-08] MEDS: Lansoprazole 3 MG/ML ORAL SUSPENSION PER TUBE SCH (08:48)
[2021-08-08] MEDS: Atorvastatin Calcium 40 MG TAB PER TUBE SCH (21:35)
[2021-08-08] MEDS: Acetaminophen 500 MG TAB PER TUBE PRN (21:43)
[2021-08-09] MEDS: Sodium Bicarbonate Tab 325 MG TAB PER TUBE SCH ×2 (09:24→20:14)
[2021-08-09] MEDS: Amiodarone 200 MG TAB PER TUBE SCH ×2 (09:24→20:14)
[2021-08-09] MEDS: Metoprolol Tartrate 50 MG TAB PER TUBE SCH ×2 (09:24→20:14)
[2021-08-09] MEDS: Apixaban 5 MG TAB PO SCH ×2 (09:25→20:14)
[2021-08-09] MEDS: Folic Acid/Vit B Comp W-C PER TUBE SCH (09:25)
[2021-08-09] MEDS: Clopidogrel Bisulfate 75 MG TAB PER TUBE SCH (09:25)
[2021-08-09] MEDS: Polyethylene Glycol 3350 17 GM Packet PER TUBE SCH (09:29)
[2021-08-09] MEDS: Senokot S 8.6-50 MG TAB PER TUBE SCH ×2 (09:29→20:14)
[2021-08-09] MEDS: Lansoprazole 3 MG/ML ORAL SUSPENSION PER TUBE SCH (09:41)
[2021-08-09] MEDS: Atorvastatin Calcium 40 MG TAB PER TUBE SCH (20:14)
[2021-08-10] MEDS: Folic Acid/Vit B Comp W-C PER TUBE SCH (08:32)
[2021-08-10] MEDS: Sodium Bicarbonate Tab 325 MG TAB PER TUBE SCH ×2 (08:32→20:42)
[2021-08-10] MEDS: Clopidogrel Bisulfate 75 MG TAB PER TUBE SCH (08:33)
[2021-08-10] MEDS: Amiodarone 200 MG TAB PER TUBE SCH ×2 (08:33→20:42)
[2021-08-10] MEDS: Metoprolol Tartrate 50 MG TAB PER TUBE SCH ×2 (08:33→20:42)
[2021-08-10] MEDS: Apixaban 5 MG TAB PO SCH ×2 (08:33→20:42)
[2021-08-10] MEDS: Senokot S 8.6-50 MG TAB PER TUBE SCH ×2 (08:39→20:43)
[2021-08-10] MEDS: Polyethylene Glycol 3350 17 GM Packet PER TUBE SCH (08:39)
[2021-08-10] MEDS: Lansoprazole 3 MG/ML ORAL SUSPENSION PER TUBE SCH (11:44)
[2021-08-10] MEDS: Atorvastatin Calcium 40 MG TAB PER TUBE SCH (20:42)
[2021-08-11] MEDS: Apixaban 5 MG TAB PO SCH ×2 (08:08→22:06)
[2021-08-11] MEDS: Polyethylene Glycol 3350 17 GM Packet PER TUBE SCH (08:08)
[2021-08-11] MEDS: Metoprolol Tartrate 50 MG TAB PER TUBE SCH ×2 (08:08→22:07)
[2021-08-11] MEDS: Clopidogrel Bisulfate 75 MG TAB PER TUBE SCH (08:08)
[2021-08-11] MEDS: Folic Acid/Vit B Comp W-C PER TUBE SCH (08:08)
[2021-08-11] MEDS: Senokot S 8.6-50 MG TAB PER TUBE SCH ×2 (08:08→22:07)
[2021-08-11] MEDS: Amiodarone 200 MG TAB PER TUBE SCH ×2 (08:08→22:06)
[2021-08-11] MEDS: Sodium Bicarbonate Tab 325 MG TAB PER TUBE SCH ×2 (08:08→22:07)
[2021-08-11] MEDS: Lansoprazole 3 MG/ML ORAL SUSPENSION PER TUBE SCH (08:11)
[2021-08-11] MEDS: Atorvastatin Calcium 40 MG TAB PER TUBE SCH (22:07)
[2021-08-12] MEDS: Lansoprazole 3 MG/ML ORAL SUSPENSION PER TUBE SCH (08:17)
[2021-08-12] MEDS: Sodium Bicarbonate Tab 325 MG TAB PER TUBE SCH ×2 (08:18→22:13)
[2021-08-12] MEDS: Polyethylene Glycol 3350 17 GM Packet PER TUBE SCH (08:18)
[2021-08-12] MEDS: Clopidogrel Bisulfate 75 MG TAB PER TUBE SCH (08:19)
[2021-08-12] MEDS: Amiodarone 200 MG TAB PER TUBE SCH ×2 (08:19→22:13)
[2021-08-12] MEDS: Folic Acid/Vit B Comp W-C PER TUBE SCH (08:19)
[2021-08-12] MEDS: Apixaban 5 MG TAB PO SCH ×2 (08:19→22:13)
[2021-08-12] MEDS: Senokot S 8.6-50 MG TAB PER TUBE SCH ×2 (08:19→22:13)
[2021-08-12] MEDS: Metoprolol Tartrate 50 MG TAB PER TUBE SCH ×2 (08:19→22:13)
[2021-08-12] MEDS: Atorvastatin Calcium 40 MG TAB PER TUBE SCH (22:13)
[2021-08-13] MEDS: Senokot S 8.6-50 MG TAB PER TUBE SCH ×2 (08:50→21:33)
[2021-08-13] MEDS: Polyethylene Glycol 3350 17 GM Packet PER TUBE SCH (08:50)
[2021-08-13] MEDS: Metoprolol Tartrate 50 MG TAB PER TUBE SCH ×2 (09:22→21:32)
[2021-08-13] MEDS: Clopidogrel Bisulfate 75 MG TAB PER TUBE SCH (09:22)
[2021-08-13] MEDS: Sodium Bicarbonate Tab 325 MG TAB PER TUBE SCH ×2 (09:22→21:30)
[2021-08-13] MEDS: Amiodarone 200 MG TAB PER TUBE SCH ×2 (09:22→21:31)
[2021-08-13] MEDS: Apixaban 5 MG TAB PO SCH ×2 (09:22→21:31)
[2021-08-13] MEDS: Folic Acid/Vit B Comp W-C PER TUBE SCH (09:22)
[2021-08-13] MEDS: Lansoprazole 3 MG/ML ORAL SUSPENSION PER TUBE SCH (09:23)
[2021-08-13] MEDS: Epoetin (NON-ESRD) 10,000 UNITS/ML VIAL SC SCH (14:14)
[2021-08-13] MEDS: Atorvastatin Calcium 40 MG TAB PER TUBE SCH (21:32)
[2021-08-14] MEDS: Heparin 10,000 UNITS/ 10 ML VIAL FS PRN (05:31)
[2021-08-14 05:52] LABS: Hemoglobin 9.5 g/dL (12.0-16.0); Mean Corpuscular HGB CONC 29.6 g/dL (32.0-36.0); Mean Corpuscular Hemoglobin 31.6 pg (27.0-31.0); Mean Platelet Volume 7.9 fL (7.4-10.4); Platelet Count 218 thou/uL (130-400); RBC Distribution Width 20.9 % (11.5-14.5); Red Blood Cell (RBC) Count 3.01 mill/uL (4.20-5.40); White Blood Cell (WBC) Count 5.4 thou/uL (4.8-10.8)
[2021-08-14 06:29] LABS: #Eosinphils 0.2 thou/uL (0.0-0.7); #Lymphocytes 0.9 thou/uL (1.20-3.40); #Monocytes 0.4 thou/uL (0.11-0.59); %Basophils 0.6 % (0.0-1.0); %Eosinophils 3.2 % (0.0-10.0); %Lymphocytes 15.6 % (21.0-51.0); %Monocytes 6.9 % (0.0-10.0); %Neutrophils 73.8 % (42.0-75.0); Anisocytosis SLIGHT = 6-15 cells (100X) (0-5/hpf); Hypochromia SLIGHT = 6-15 cells (100X) (0-5/hpf); MDiff Complete? YES; Macrocytosis SLIGHT = 6-15 cells (100X) (0-5/hpf); Polychromasia SLIGHT = 2-3 cells (100X) (0-2/hpf)
[2021-08-14 06:37] LABS: Anion Gap 15 mmol/L (10-20); BUN (Urea Nitrogen) 27 mg/dL (9.8-20.1); Calc. Creatinine Clearance 46 mL/min (70-130); Calcium 8.5 mg/dL (7.8-10.44); Carbon Dioxide 26 mmol/L (22-29); Chloride 104 mmol/L (98-107); Glucose 109 mg/dL (70-105); Potassium 3.4 mmol/L (3.5-5.1); Sodium 142 mmol/L (136-145)
[2021-08-14] MEDS ORDERED: Potassium Chloride 20 MEQ TAB PO SCH (09:00)
[2021-08-14] MEDS ORDERED: Furosemide 20 MG TAB PO SCH ×2 (09:45→10:00)
[2021-08-14] MEDS: Clopidogrel Bisulfate 75 MG TAB PER TUBE SCH (10:25)
[2021-08-14] MEDS: Sodium Bicarbonate Tab 325 MG TAB PER TUBE SCH ×2 (10:25→22:28)
[2021-08-14] MEDS: Apixaban 5 MG TAB PO SCH ×2 (10:25→22:28)
[2021-08-14] MEDS: Metoprolol Tartrate 50 MG TAB PER TUBE SCH ×2 (10:25→22:28)
[2021-08-14] MEDS: Amiodarone 200 MG TAB PER TUBE SCH ×2 (10:25→22:29)
[2021-08-14] MEDS: Folic Acid/Vit B Comp W-C PER TUBE SCH (10:25)
[2021-08-14] MEDS: Polyethylene Glycol 3350 17 GM Packet PER TUBE SCH (10:26)
[2021-08-14] MEDS: Lansoprazole 3 MG/ML ORAL SUSPENSION PER TUBE SCH (10:26)
[2021-08-14] MEDS: Senokot S 8.6-50 MG TAB PER TUBE SCH ×2 (10:27→22:29)
[2021-08-14] MEDS: Atorvastatin Calcium 40 MG TAB PER TUBE SCH (22:28)
[2021-08-15] MEDS: Heparin 10,000 UNITS/ 10 ML VIAL FS PRN (05:16)
[2021-08-15 05:56] LABS: Anion Gap 16 mmol/L (10-20); BUN (Urea Nitrogen) 24 mg/dL (9.8-20.1); Calc. Creatinine Clearance 48 mL/min (70-130); Calcium 8.4 mg/dL (7.8-10.44); Carbon Dioxide 29 mmol/L (22-29); Chloride 104 mmol/L (98-107); Glucose 96 mg/dL (70-105); Potassium 3.5 mmol/L (3.5-5.1); Sodium 145 mmol/L (136-145)
[2021-08-15 06:21] VITALS: BMI 33.5
[2021-08-15] MEDS: Folic Acid/Vit B Comp W-C PER TUBE SCH (09:31)
[2021-08-15] MEDS: Sodium Bicarbonate Tab 325 MG TAB PER TUBE SCH ×2 (09:31→20:10)
[2021-08-15] MEDS: Lansoprazole 3 MG/ML ORAL SUSPENSION PER TUBE SCH (09:32)
[2021-08-15] MEDS: Apixaban 5 MG TAB PO SCH ×2 (09:32→20:10)
[2021-08-15] MEDS: Clopidogrel Bisulfate 75 MG TAB PER TUBE SCH (09:32)
[2021-08-15] MEDS: Senokot S 8.6-50 MG TAB PER TUBE SCH ×2 (09:32→20:10)
[2021-08-15] MEDS: Metoprolol Tartrate 50 MG TAB PER TUBE SCH ×2 (09:32→20:10)
[2021-08-15] MEDS: Amiodarone 200 MG TAB PER TUBE SCH ×2 (09:32→20:10)
[2021-08-15] MEDS: Furosemide 20 MG TAB PO SCH (09:32)
[2021-08-15] MEDS: Polyethylene Glycol 3350 17 GM Packet PER TUBE SCH (09:33)
[2021-08-15] MEDS ORDERED: Potassium Chloride 20 MEQ TAB PO SCH (12:45)
[2021-08-15] MEDS: Atorvastatin Calcium 40 MG TAB PER TUBE SCH (20:10)
[2021-08-16] MEDS ORDERED: Lidocaine 1% w/Epinephrine 1:100K 20 ML VIAL ONE (08:37)
[2021-08-16] MEDS: Amiodarone 200 MG TAB PER TUBE SCH ×2 (09:29→20:20)
[2021-08-16] MEDS: Apixaban 5 MG TAB PO SCH ×2 (09:29→20:20)
[2021-08-16] MEDS: Clopidogrel Bisulfate 75 MG TAB PER TUBE SCH (09:29)
[2021-08-16] MEDS: Metoprolol Tartrate 50 MG TAB PER TUBE SCH ×2 (09:29→20:20)
[2021-08-16] MEDS: Furosemide 20 MG TAB PO SCH (09:29)
[2021-08-16] MEDS: Folic Acid/Vit B Comp W-C PER TUBE SCH (09:29)
[2021-08-16] MEDS: Polyethylene Glycol 3350 17 GM Packet PER TUBE SCH (09:30)
[2021-08-16] MEDS: Senokot S 8.6-50 MG TAB PER TUBE SCH ×2 (09:30→20:21)
[2021-08-16] MEDS: Sodium Bicarbonate Tab 325 MG TAB PER TUBE SCH ×2 (09:32→20:21)
[2021-08-16] MEDS: Lansoprazole 3 MG/ML ORAL SUSPENSION PER TUBE SCH (09:35)
[2021-08-16 10:50] LABS: Anion Gap 14 mmol/L (10-20); BUN (Urea Nitrogen) 22 mg/dL (9.8-20.1); Calc. Creatinine Clearance 48 mL/min (70-130); Calcium 8.4 mg/dL (7.8-10.44); Carbon Dioxide 29 mmol/L (22-29); Chloride 104 mmol/L (98-107); Glucose 106 mg/dL (70-105); Potassium 3.6 mmol/L (3.5-5.1); Sodium 143 mmol/L (136-145); Troponin I 0.034 ng/mL (< 0.028)
[2021-08-16] MEDS: Atorvastatin Calcium 40 MG TAB PER TUBE SCH (20:20)
[2021-08-16] MEDS: Acetaminophen 500 MG TAB PER TUBE PRN (20:21)
[2021-08-17 08:29] VITALS: BP 145/83; TEMP 97.5
[2021-08-17] MEDS: Amiodarone 200 MG TAB PER TUBE SCH (09:11)
[2021-08-17] MEDS: Apixaban 5 MG TAB PO SCH (09:11)
[2021-08-17] MEDS: Clopidogrel Bisulfate 75 MG TAB PER TUBE SCH (09:12)
[2021-08-17] MEDS: Folic Acid/Vit B Comp W-C PER TUBE SCH (09:12)
[2021-08-17] MEDS: Furosemide 20 MG TAB PO SCH (09:12)
[2021-08-17] MEDS: Metoprolol Tartrate 50 MG TAB PER TUBE SCH (09:15)
[2021-08-17] MEDS: Polyethylene Glycol 3350 17 GM Packet PER TUBE SCH (09:15)
[2021-08-17] MEDS: Sodium Bicarbonate Tab 325 MG TAB PER TUBE SCH (09:16)
[2021-08-17] MEDS: Senokot S 8.6-50 MG TAB PER TUBE SCH (09:16)
[2021-08-17] MEDS: Lansoprazole 3 MG/ML ORAL SUSPENSION PER TUBE SCH (10:42)
== END 2021-08-17 18:57 | DRG 91 ==
LOC: 2NO 16:50 → T4-A 07-31 16:34
PROVIDERS: ADMIT Internal Medicine; ATTEND Internal Medicine
PROC: 0DH67UZ Insertion of Feeding Device into Stomach, Via Natural or Artificial Opening (ICD-10-PCS; principal; 2021-07-14)
PROC: 3E0G76Z Introduction of Nutritional Substance into Upper GI, Via Natural or Artificial Opening (ICD-10-PCS; 2021-07-14)
PROC: 02PYX3Z Removal of Infusion Device from Great Vessel, External Approach (ICD-10-PCS; 2021-07-16)
PROC: 0DH63UZ Insertion of Feeding Device into Stomach, Percutaneous Approach (ICD-10-PCS; 2021-07-19)
PROC: 3E0G76Z Introduction of Nutritional Substance into Upper GI, Via Natural or Artificial Opening (ICD-10-PCS; 2021-07-19)
DX: I97.820 Postprocedural cerebrovascular infarction following cardiac surgery (principal); I63.512 Cerebral infarction due to unspecified occlusion or stenosis of left middle cerebral artery; I71.00 Dissection of unspecified site of aorta; N18.6 End stage renal disease; I50.43 Acute on chronic combined systolic (congestive) and diastolic (congestive) heart failure; N17.0 Acute kidney failure with tubular necrosis; I21.11 ST elevation (STEMI) myocardial infarction involving right coronary artery; G93.41 Metabolic encephalopathy; J96.01 Acute respiratory failure with hypoxia; I21.19 ST elevation (STEMI) myocardial infarction involving other coronary artery of inferior wall; I63.532 Cerebral infarction due to unspecified occlusion or stenosis of left posterior cerebral artery; I51.0 Cardiac septal defect, acquired; G81.91 Hemiplegia, unspecified affecting right dominant side; N30.00 Acute cystitis without hematuria; E87.0 Hyperosmolality and hypernatremia; E87.1 Hypo-osmolality and hyponatremia; I13.2 Hypertensive heart and chronic kidney disease with heart failure and with stage 5 chronic kidney disease, or end stage renal disease; D62 Acute posthemorrhagic anemia; I48.92 Unspecified atrial flutter; K22.10 Ulcer of esophagus without bleeding; Z66 Do not resuscitate; Z51.5 Encounter for palliative care; Z20.822 Contact with and (suspected) exposure to COVID-19; I69.991 Dysphagia following unspecified cerebrovascular disease; E87.6 Hypokalemia; R47.1 Dysarthria and anarthria; D63.1 Anemia in chronic kidney disease; I25.10 Atherosclerotic heart disease of native coronary artery without angina pectoris; K94.21 Gastrostomy hemorrhage; E87.8 Other disorders of electrolyte and fluid balance, not elsewhere classified; R53.81 Other malaise; Y83.8 Other surgical procedures as the cause of abnormal reaction of the patient, or of later complication, without mention of misadventure at the time of the procedure; I95.9 Hypotension, unspecified; B96.5 Pseudomonas (aeruginosa) (mallei) (pseudomallei) as the cause of diseases classified elsewhere; I48.0 Paroxysmal atrial fibrillation; K59.00 Constipation, unspecified; G40.909 Epilepsy, unspecified, not intractable, without status epilepticus; Z99.2 Dependence on renal dialysis; Z95.5 Presence of coronary angioplasty implant and graft; Z87.891 Personal history of nicotine dependence; Z79.899 Other long term (current) drug therapy; Z79.02 Long term (current) use of antithrombotics/antiplatelets; Z79.01 Long term (current) use of anticoagulants; Z78.1 Physical restraint status
CPT/HCPCS: 36415; 36416; 70450; 71045; 74018; 74230; 80048; 80053; 80061; 80069; 81001; 82040; 82274; 82607; 82728; 82746; 82805; 83540; 83550; 83735; 83880; 84100; 84484; 85014; 85018; 85025; 85027; 86850; 86900; 86901; 87040; 87077; 87086; 87186; 93005; 93010; 94640; J0692; J0696; J0885; J1642; J1644; J1940; J2060; J2185; J2250; J2270; J2916; J3480; J3490; J7030; J7050; J7620; J7626; P9047; Q5106; U0003; U0005

== ENCOUNTER 2021-09-10 11:56 | Inpatient (IN) | payer OTHER ==
[2021-09-10 13:08] LABS: #Lymphocytes 0.8 thou/uL (1.20-3.40); #Monocytes 0.4 thou/uL (0.11-0.59); #Neutrophils 6.3 thou/uL (1.40-6.50); %Basophils 0.5 % (0.0-1.0); %Eosinophils 0.3 % (0.0-10.0); %Lymphocytes 10.3 % (21.0-51.0); %Monocytes 5.6 % (0.0-10.0); %Neutrophils 83.2 % (42.0-75.0); Hemoglobin 11.4 g/dL (12.0-16.0); Mean Corpuscular HGB CONC 30.1 g/dL (32.0-36.0); Mean Corpuscular Hemoglobin 30.9 pg (27.0-31.0); Mean Platelet Volume 8.9 fL (7.4-10.4); Platelet Count 189 thou/uL (130-400); RBC Distribution Width 16.9 % (11.5-14.5); Red Blood Cell (RBC) Count 3.69 mill/uL (4.20-5.40); White Blood Cell (WBC) Count 7.6 thou/uL (4.8-10.8)
[2021-09-10 13:26] LABS: ALT (SGPT) 11 U/L (8-55); AST (SGOT) 20 U/L (5-34); Albumin 3.2 g/dL (3.5-5.0); Alkaline Phosphatase 70 U/L (40-110); Anion Gap 23 mmol/L (10-20); BUN (Urea Nitrogen) 27 mg/dL (9.8-20.1); Bilirubin, Total 1.3 mg/dL (0.2-1.2); Calc. Creatinine Clearance 0 mL/min (70-130); Calcium 8.5 mg/dL (7.8-10.44); Carbon Dioxide 18 mmol/L (22-29); Chloride 106 mmol/L (98-107); Estimated GFR 24; Globulin 2.4 g/dL (2.4-3.5); Glucose 105 mg/dL (70-105); Lipase 50 U/L (8-78); Potassium 3.9 mmol/L (3.5-5.1); Protein, Total 5.6 g/dL (6.0-8.3); Sodium 143 mmol/L (136-145)
[2021-09-10 13:35] LABS: Bacteria/HPF 4+ HPF (None Seen); Bilirubin 1+ (Negative); Blood, Urine 3+ (Negative); Clarity Turbid (Clear); Glucose, Urine (Dipstick) Normal (Negative); Ketone, Urine Trace mg/dL (Negative); Leukocyte 500 Leu/uL (Negative); Nitrite Negative (Negative); Protein, Urine (Dipstick) 200 mg/dL (Neg-Trace); RBC/HPF Greater than 50 HPF (0-3); Specific Gravity, Urine 1.024 (1.002-1.036); Squamous Epithelial 0-3 HPF (0-3); WBC/HPF Greater than 50 HPF (0-3)
[2021-09-10 13:47] LABS: CKMB 1.3 ng/mL (0-6.6)
[2021-09-10 14:14] LABS: Acetaminophen Less than 10.0 mcg/mL (10.0-30.0); Alcohol Less than 10 mg/dL (Less than 10); Salicylate Less than 8.0 mg/dL (15.0-30.0)
[2021-09-10] MEDS ORDERED: Meropenem 1 GM in Sodium Chloride 0.9% 100 ML IVPB SCH ×2 (19:00→22:00)
[2021-09-10 19:39] LABS: Troponin I 0.048 ng/mL (< 0.028)
[2021-09-10] MEDS: Apixaban 5 MG TAB PER TUBE SCH (22:06)
[2021-09-10] MEDS: Atorvastatin Calcium 40 MG TAB PER TUBE SCH (22:06)
[2021-09-10] MEDS: Metoprolol Tartrate 50 MG TAB PER TUBE SCH (22:06)
[2021-09-10] MEDS ORDERED: Bumetanide 1 MG/4 ML VIAL IVP SCH (23:59)
[2021-09-11] MEDS: Meropenem 500 MG in Sodium Chloride 0.9% 100 ML IVPB SCH ×2 (02:34→13:56)
[2021-09-11] MEDS ORDERED: Bumetanide 1 MG/4 ML VIAL IVP SCH (06:00)
[2021-09-11] MEDS: Apixaban 5 MG TAB PER TUBE SCH ×2 (08:50→20:54)
[2021-09-11] MEDS: Metoprolol Tartrate 50 MG TAB PER TUBE SCH ×2 (08:50→20:54)
[2021-09-11] MEDS: Clopidogrel Bisulfate 75 MG TAB PER TUBE SCH (08:50)
[2021-09-11] MEDS: Amiodarone 200 MG TAB PER TUBE SCH (08:50)
[2021-09-11 09:51] LABS: Anion Gap 18 mmol/L (10-20); BUN (Urea Nitrogen) 27 mg/dL (9.8-20.1); Calc. Creatinine Clearance 37 mL/min (70-130); Calcium 8.4 mg/dL (7.8-10.44); Carbon Dioxide 22 mmol/L (22-29); Chloride 105 mmol/L (98-107); Estimated GFR 23; Glucose 115 mg/dL (70-105); Potassium 3.5 mmol/L (3.5-5.1); Sodium 141 mmol/L (136-145)
[2021-09-11 14:38] LABS: Bacteria/HPF 2+ HPF (None Seen); Bilirubin Negative (Negative); Blood, Urine 3+ (Negative); Calcium Oxalate Crystals Rare HPF (None Seen); Clarity Turbid (Clear); Glucose, Urine (Dipstick) Normal (Negative); Ketone, Urine Negative (Negative); Leukocyte 500 Leu/uL (Negative); Nitrite Negative (Negative); Protein, Urine (Dipstick) Negative (Neg-Trace); Specific Gravity, Urine 1.011 (1.002-1.036); Squamous Epithelial 0-3 HPF (0-3); Urobilinogen Normal mg/dL (Less than 2); WBC/HPF Greater than 50 HPF (0-3)
[2021-09-11] MEDS: Atorvastatin Calcium 40 MG TAB PER TUBE SCH (20:54)
[2021-09-12] MEDS: Meropenem 500 MG in Sodium Chloride 0.9% 100 ML IVPB SCH ×2 (00:45→13:17)
[2021-09-12 06:48] LABS: Anion Gap 14 mmol/L (10-20); BUN (Urea Nitrogen) 28 mg/dL (9.8-20.1); Calc. Creatinine Clearance 38 mL/min (70-130); Calcium 8.3 mg/dL (7.8-10.44); Carbon Dioxide 26 mmol/L (22-29); Chloride 106 mmol/L (98-107); Estimated GFR 23; Glucose 109 mg/dL (70-105); Potassium 3.3 mmol/L (3.5-5.1); Sodium 143 mmol/L (136-145)
[2021-09-12] MEDS ORDERED: Potassium Chloride 20 MEQ TAB PO SCH (09:00)
[2021-09-12] MEDS: Apixaban 5 MG TAB PER TUBE SCH ×2 (09:12→21:03)
[2021-09-12] MEDS: Metoprolol Tartrate 50 MG TAB PER TUBE SCH ×2 (09:14→21:03)
[2021-09-12] MEDS: Clopidogrel Bisulfate 75 MG TAB PER TUBE SCH (09:14)
[2021-09-12] MEDS: Amiodarone 200 MG TAB PER TUBE SCH (09:15)
[2021-09-12] MEDS: Bumetanide 1 MG/4 ML VIAL IVP SCH (09:16)
[2021-09-12] MEDS: Atorvastatin Calcium 40 MG TAB PER TUBE SCH (21:03)
[2021-09-13] MEDS: Meropenem 500 MG in Sodium Chloride 0.9% 100 ML IVPB SCH ×2 (00:55→12:49)
[2021-09-13 05:16] LABS: Anion Gap 12 mmol/L (10-20); BUN (Urea Nitrogen) 27 mg/dL (9.8-20.1); Calc. Creatinine Clearance 41 mL/min (70-130); Calcium 8.2 mg/dL (7.8-10.44); Carbon Dioxide 26 mmol/L (22-29); Chloride 106 mmol/L (98-107); Estimated GFR 26; Glucose 105 mg/dL (70-105); Potassium 3.4 mmol/L (3.5-5.1); Sodium 141 mmol/L (136-145)
[2021-09-13] MEDS: Amiodarone 200 MG TAB PER TUBE SCH (08:41)
[2021-09-13] MEDS: Metoprolol Tartrate 50 MG TAB PER TUBE SCH (08:41)
[2021-09-13] MEDS: Apixaban 5 MG TAB PER TUBE SCH ×2 (08:41→21:04)
[2021-09-13] MEDS: Clopidogrel Bisulfate 75 MG TAB PER TUBE SCH (08:41)
[2021-09-13] MEDS: Bumetanide 1 MG/4 ML VIAL IVP SCH (09:25)
[2021-09-13] MEDS: Atorvastatin Calcium 40 MG TAB PER TUBE SCH (21:04)
[2021-09-14] MEDS: Meropenem 1 GM in Sodium Chloride 0.9% 100 ML IVPB SCH ×2 (02:20→12:07)
[2021-09-14 06:00] LABS: Anion Gap 16 mmol/L (10-20); BUN (Urea Nitrogen) 28 mg/dL (9.8-20.1); Calc. Creatinine Clearance 48 mL/min (70-130); Calcium 8.2 mg/dL (7.8-10.44); Carbon Dioxide 25 mmol/L (22-29); Chloride 104 mmol/L (98-107); Estimated GFR 30; Glucose 100 mg/dL (70-105); Potassium 3.2 mmol/L (3.5-5.1); Sodium 142 mmol/L (136-145)
[2021-09-14] MEDS ORDERED: Potassium Chloride 20 MEQ TAB PO SCH ×3 (06:30→15:45)
[2021-09-14] MEDS ORDERED: Electrolyte Replacement Protocol FS PRN (06:30)
[2021-09-14] MEDS: Bumetanide 1 MG/4 ML VIAL IVP SCH (08:39)
[2021-09-14] MEDS: Apixaban 5 MG TAB PER TUBE SCH ×2 (08:39→20:25)
[2021-09-14] MEDS: Clopidogrel Bisulfate 75 MG TAB PER TUBE SCH (08:39)
[2021-09-14] MEDS: Metoprolol Tartrate 50 MG TAB PER TUBE SCH ×2 (09:18→20:25)
[2021-09-14] MEDS: Amiodarone 200 MG TAB PER TUBE SCH (09:18)
[2021-09-14 14:26] LABS: Potassium 3.4 mmol/L (3.5-5.1)
[2021-09-14 14:32] LABS: Magnesium 1.7 mg/dL (1.6-2.6)
[2021-09-14] MEDS ORDERED: Potassium Chloride 20 MEQ TAB PER TUBE SCH (15:00)
[2021-09-14] MEDS: Atorvastatin Calcium 40 MG TAB PER TUBE SCH (20:25)
[2021-09-15] MEDS ORDERED: Magnesium 2 GM/50 ML(in water) 2 GM in Premix Bag 1 BAG IVPB SCH (01:00)
[2021-09-15 05:57] LABS: Anion Gap 18 mmol/L (10-20); BUN (Urea Nitrogen) 25 mg/dL (9.8-20.1); Calc. Creatinine Clearance 56 mL/min (70-130); Calcium 8.3 mg/dL (7.8-10.44); Carbon Dioxide 22 mmol/L (22-29); Chloride 105 mmol/L (98-107); Estimated GFR 36; Glucose 103 mg/dL (70-105); Sodium 141 mmol/L (136-145)
[2021-09-15] MEDS: Clopidogrel Bisulfate 75 MG TAB PER TUBE SCH (08:35)
[2021-09-15] MEDS: Apixaban 5 MG TAB PER TUBE SCH ×2 (08:35→20:27)
[2021-09-15] MEDS: Amiodarone 200 MG TAB PER TUBE SCH (08:35)
[2021-09-15] MEDS: Metoprolol Tartrate 50 MG TAB PER TUBE SCH ×2 (08:35→20:27)
[2021-09-15] MEDS: Bumetanide 1 MG/4 ML VIAL IVP SCH (09:00)
[2021-09-15] MEDS: Atorvastatin Calcium 40 MG TAB PER TUBE SCH (20:27)
[2021-09-16 06:00] LABS: Anion Gap 14 mmol/L (10-20); BUN (Urea Nitrogen) 24 mg/dL (9.8-20.1); Calc. Creatinine Clearance 60 mL/min (70-130); Calcium 8.4 mg/dL (7.8-10.44); Carbon Dioxide 24 mmol/L (22-29); Chloride 106 mmol/L (98-107); Estimated GFR 40; Glucose 99 mg/dL (70-105); Potassium 3.8 mmol/L (3.5-5.1); Sodium 140 mmol/L (136-145)
[2021-09-16] MEDS: Metoprolol Tartrate 50 MG TAB PER TUBE SCH ×2 (08:13→21:30)
[2021-09-16] MEDS: Apixaban 5 MG TAB PER TUBE SCH ×2 (08:14→21:30)
[2021-09-16] MEDS: Clopidogrel Bisulfate 75 MG TAB PER TUBE SCH (08:14)
[2021-09-16] MEDS: Bumetanide 1 MG/4 ML VIAL IVP SCH (08:15)
[2021-09-16] MEDS: Amiodarone 200 MG TAB PER TUBE SCH (08:15)
[2021-09-16] MEDS: Atorvastatin Calcium 40 MG TAB PER TUBE SCH (21:30)
[2021-09-17] MEDS: Apixaban 5 MG TAB PER TUBE SCH ×2 (09:03→20:13)
[2021-09-17] MEDS: Metoprolol Tartrate 50 MG TAB PER TUBE SCH ×2 (09:03→20:13)
[2021-09-17] MEDS: Clopidogrel Bisulfate 75 MG TAB PER TUBE SCH (09:03)
[2021-09-17] MEDS: Bumetanide 1 MG/4 ML VIAL IVP SCH (09:03)
[2021-09-17] MEDS: Amiodarone 200 MG TAB PER TUBE SCH (09:03)
[2021-09-17] MEDS: Atorvastatin Calcium 40 MG TAB PER TUBE SCH (20:13)
[2021-09-18 07:35] LABS: Anion Gap 12 mmol/L (10-20); BUN (Urea Nitrogen) 25 mg/dL (9.8-20.1); Calc. Creatinine Clearance 51 mL/min (70-130); Calcium 8.6 mg/dL (7.8-10.44); Carbon Dioxide 30 mmol/L (22-29); Chloride 102 mmol/L (98-107); Estimated GFR 34; Glucose 102 mg/dL (70-105); Potassium 4.2 mmol/L (3.5-5.1); Sodium 140 mmol/L (136-145)
[2021-09-18] MEDS: Amiodarone 200 MG TAB PER TUBE SCH (08:46)
[2021-09-18] MEDS: Apixaban 5 MG TAB PER TUBE SCH ×2 (08:46→21:58)
[2021-09-18] MEDS: Metoprolol Tartrate 50 MG TAB PER TUBE SCH ×2 (08:46→21:58)
[2021-09-18] MEDS: Clopidogrel Bisulfate 75 MG TAB PER TUBE SCH (08:46)
[2021-09-18] MEDS: Bumetanide 1 MG TAB PO SCH (09:56)
[2021-09-18] MEDS: Atorvastatin Calcium 40 MG TAB PER TUBE SCH (21:58)
[2021-09-19 05:36] LABS: Anion Gap 17 mmol/L (10-20); BUN (Urea Nitrogen) 24 mg/dL (9.8-20.1); Calc. Creatinine Clearance 57 mL/min (70-130); Calcium 8.7 mg/dL (7.8-10.44); Carbon Dioxide 24 mmol/L (22-29); Chloride 103 mmol/L (98-107); Estimated GFR 38; Glucose 106 mg/dL (70-105); Potassium 3.5 mmol/L (3.5-5.1); Sodium 140 mmol/L (136-145)
[2021-09-19] MEDS ORDERED: Potassium Bicarbonate/Cit Ac 20 MEQ TAB PER TUBE SCH (08:00)
[2021-09-19] MEDS: Amiodarone 200 MG TAB PER TUBE SCH (08:39)
[2021-09-19] MEDS: Clopidogrel Bisulfate 75 MG TAB PER TUBE SCH (08:39)
[2021-09-19] MEDS: Bumetanide 1 MG TAB PO SCH (08:39)
[2021-09-19] MEDS: Metoprolol Tartrate 50 MG TAB PER TUBE SCH ×2 (08:39→20:40)
[2021-09-19] MEDS: Apixaban 5 MG TAB PER TUBE SCH ×2 (08:39→20:40)
[2021-09-19] MEDS: Atorvastatin Calcium 40 MG TAB PER TUBE SCH (20:43)
[2021-09-20] MEDS: Amiodarone 200 MG TAB PER TUBE SCH (09:33)
[2021-09-20] MEDS: Metoprolol Tartrate 50 MG TAB PER TUBE SCH ×2 (09:33→21:21)
[2021-09-20] MEDS: Clopidogrel Bisulfate 75 MG TAB PER TUBE SCH (09:33)
[2021-09-20] MEDS: Bumetanide 1 MG TAB PO SCH (09:33)
[2021-09-20] MEDS: Apixaban 5 MG TAB PER TUBE SCH ×2 (09:33→21:21)
[2021-09-20] MEDS: Atorvastatin Calcium 40 MG TAB PER TUBE SCH (21:21)
[2021-09-21] MEDS: Bumetanide 1 MG TAB PO SCH (10:44)
[2021-09-21] MEDS: Metoprolol Tartrate 50 MG TAB PER TUBE SCH ×2 (10:45→20:45)
[2021-09-21] MEDS: Apixaban 5 MG TAB PER TUBE SCH ×2 (10:45→20:45)
[2021-09-21] MEDS: Amiodarone 200 MG TAB PER TUBE SCH (10:45)
[2021-09-21] MEDS: Clopidogrel Bisulfate 75 MG TAB PER TUBE SCH (10:46)
[2021-09-21] MEDS: Atorvastatin Calcium 40 MG TAB PER TUBE SCH (20:45)
[2021-09-22] MEDS: Bumetanide 1 MG TAB PO SCH ×2 (09:19→09:20)
[2021-09-22] MEDS: Apixaban 5 MG TAB PER TUBE SCH ×2 (09:20→21:21)
[2021-09-22] MEDS: Amiodarone 200 MG TAB PER TUBE SCH (09:20)
[2021-09-22] MEDS: Metoprolol Tartrate 50 MG TAB PER TUBE SCH ×2 (09:20→21:21)
[2021-09-22] MEDS: Clopidogrel Bisulfate 75 MG TAB PER TUBE SCH (09:20)
[2021-09-22] MEDS: Atorvastatin Calcium 40 MG TAB PER TUBE SCH (21:21)
[2021-09-23 06:03] LABS: Anion Gap 16 mmol/L (10-20); BUN (Urea Nitrogen) 21 mg/dL (9.8-20.1); Calc. Creatinine Clearance 56 mL/min (70-130); Calcium 8.7 mg/dL (7.8-10.44); Carbon Dioxide 28 mmol/L (22-29); Chloride 102 mmol/L (98-107); Estimated GFR 38; Glucose 106 mg/dL (70-105); Potassium 3.5 mmol/L (3.5-5.1); Sodium 142 mmol/L (136-145)
[2021-09-23] MEDS ORDERED: Potassium Chloride 20 MEQ TAB PO SCH (08:00)
[2021-09-23] MEDS: Metoprolol Tartrate 50 MG TAB PER TUBE SCH ×2 (08:33→20:35)
[2021-09-23] MEDS: Clopidogrel Bisulfate 75 MG TAB PER TUBE SCH (08:33)
[2021-09-23] MEDS: Apixaban 5 MG TAB PER TUBE SCH ×2 (08:34→20:35)
[2021-09-23] MEDS: Bumetanide 1 MG TAB PO SCH (08:34)
[2021-09-23] MEDS: Amiodarone 200 MG TAB PER TUBE SCH (08:34)
[2021-09-23] MEDS: Atorvastatin Calcium 40 MG TAB PER TUBE SCH (20:35)
[2021-09-24 06:23] LABS: Anion Gap 15 mmol/L (10-20); BUN (Urea Nitrogen) 23 mg/dL (9.8-20.1); Calc. Creatinine Clearance 59 mL/min (70-130); Calcium 8.8 mg/dL (7.8-10.44); Carbon Dioxide 27 mmol/L (22-29); Chloride 103 mmol/L (98-107); Estimated GFR 40; Glucose 100 mg/dL (70-105); Potassium 3.5 mmol/L (3.5-5.1); Sodium 141 mmol/L (136-145)
[2021-09-24] MEDS: Metoprolol Tartrate 50 MG TAB PER TUBE SCH ×2 (08:46→19:13)
[2021-09-24] MEDS: Clopidogrel Bisulfate 75 MG TAB PER TUBE SCH (08:47)
[2021-09-24] MEDS: Apixaban 5 MG TAB PER TUBE SCH ×2 (08:47→19:13)
[2021-09-24] MEDS: Amiodarone 200 MG TAB PER TUBE SCH (08:47)
[2021-09-24] MEDS ORDERED: Potassium Bicarbonate/Cit Ac 20 MEQ TAB PER TUBE SCH (10:00)
[2021-09-24 11:27] VITALS: BMI 36.4
[2021-09-24] MEDS: Atorvastatin Calcium 40 MG TAB PER TUBE SCH (19:13)
[2021-09-25 06:14] LABS: Anion Gap 14 mmol/L (10-20); BUN (Urea Nitrogen) 23 mg/dL (9.8-20.1); Calc. Creatinine Clearance 57 mL/min (70-130); Calcium 8.8 mg/dL (7.8-10.44); Carbon Dioxide 32 mmol/L (22-29); Chloride 102 mmol/L (98-107); Estimated GFR 38; Glucose 93 mg/dL (70-105); Potassium 4.1 mmol/L (3.5-5.1); Sodium 144 mmol/L (136-145)
[2021-09-25] MEDS: Apixaban 5 MG TAB PER TUBE SCH ×2 (09:07→21:55)
[2021-09-25] MEDS: Amiodarone 200 MG TAB PER TUBE SCH (09:07)
[2021-09-25] MEDS: Clopidogrel Bisulfate 75 MG TAB PER TUBE SCH (09:07)
[2021-09-25] MEDS: Bumetanide 1 MG TAB PO SCH (09:07)
[2021-09-25] MEDS: Metoprolol Tartrate 50 MG TAB PER TUBE SCH ×2 (09:07→21:55)
[2021-09-25] MEDS ORDERED: Bumetanide 1 MG TAB PO SCH (13:00)
[2021-09-25] MEDS: Atorvastatin Calcium 40 MG TAB PER TUBE SCH (21:55)
[2021-09-26 07:51] LABS: Anion Gap 11 mmol/L (10-20); BUN (Urea Nitrogen) 20 mg/dL (9.8-20.1); Calc. Creatinine Clearance 59 mL/min (70-130); Calcium 8.7 mg/dL (7.8-10.44); Carbon Dioxide 34 mmol/L (22-29); Chloride 102 mmol/L (98-107); Estimated GFR 40; Glucose 88 mg/dL (70-105); Potassium 3.4 mmol/L (3.5-5.1); Sodium 144 mmol/L (136-145)
[2021-09-26] MEDS ORDERED: Potassium Bicarbonate/Cit Ac 20 MEQ TAB PER TUBE SCH (09:00)
[2021-09-26] MEDS: Bumetanide 1 MG TAB PO SCH ×2 (09:14→22:19)
[2021-09-26] MEDS: Metoprolol Tartrate 50 MG TAB PER TUBE SCH ×2 (09:15→22:19)
[2021-09-26] MEDS: Apixaban 5 MG TAB PER TUBE SCH ×2 (09:15→22:20)
[2021-09-26] MEDS: Clopidogrel Bisulfate 75 MG TAB PER TUBE SCH (09:15)
[2021-09-26] MEDS: Amiodarone 200 MG TAB PER TUBE SCH (09:15)
[2021-09-26] MEDS: Atorvastatin Calcium 40 MG TAB PER TUBE SCH (22:20)
[2021-09-27 06:27] LABS: Anion Gap 16 mmol/L (10-20); BUN (Urea Nitrogen) 21 mg/dL (9.8-20.1); Calc. Creatinine Clearance 55 mL/min (70-130); Calcium 8.9 mg/dL (7.8-10.44); Carbon Dioxide 29 mmol/L (22-29); Chloride 101 mmol/L (98-107); Estimated GFR 37; Glucose 93 mg/dL (70-105); Sodium 141 mmol/L (136-145)
[2021-09-27] MEDS: Apixaban 5 MG TAB PER TUBE SCH ×2 (09:36→21:08)
[2021-09-27] MEDS: Bumetanide 1 MG TAB PO SCH ×2 (09:36→21:08)
[2021-09-27] MEDS: Clopidogrel Bisulfate 75 MG TAB PER TUBE SCH (09:36)
[2021-09-27] MEDS: Amiodarone 200 MG TAB PER TUBE SCH (09:36)
[2021-09-27] MEDS: Metoprolol Tartrate 50 MG TAB PER TUBE SCH ×2 (09:36→21:08)
[2021-09-27] MEDS: Atorvastatin Calcium 40 MG TAB PER TUBE SCH (21:10)
[2021-09-28 06:22] LABS: Anion Gap 15 mmol/L (10-20); BUN (Urea Nitrogen) 22 mg/dL (9.8-20.1); Calc. Creatinine Clearance 54 mL/min (70-130); Calcium 8.6 mg/dL (7.8-10.44); Carbon Dioxide 30 mmol/L (22-29); Chloride 101 mmol/L (98-107); Estimated GFR 36; Glucose 99 mg/dL (70-105); Potassium 3.3 mmol/L (3.5-5.1); Sodium 143 mmol/L (136-145)
[2021-09-28] MEDS ORDERED: Potassium Chloride 20 MEQ TAB PO SCH ×2 (08:00→10:45)
[2021-09-28] MEDS: Apixaban 5 MG TAB PER TUBE SCH ×2 (08:38→20:19)
[2021-09-28] MEDS: Metoprolol Tartrate 50 MG TAB PER TUBE SCH ×2 (08:38→20:19)
[2021-09-28] MEDS: Amiodarone 200 MG TAB PER TUBE SCH (08:38)
[2021-09-28] MEDS: Clopidogrel Bisulfate 75 MG TAB PER TUBE SCH (08:39)
[2021-09-28] MEDS: Bumetanide 1 MG TAB PO SCH ×2 (08:39→20:19)
[2021-09-28] MEDS: Atorvastatin Calcium 40 MG TAB PER TUBE SCH (20:19)
[2021-09-29 06:08] LABS: Anion Gap 12 mmol/L (10-20); BUN (Urea Nitrogen) 20 mg/dL (9.8-20.1); Calc. Creatinine Clearance 56 mL/min (70-130); Calcium 8.8 mg/dL (7.8-10.44); Carbon Dioxide 31 mmol/L (22-29); Chloride 101 mmol/L (98-107); Estimated GFR 37; Glucose 85 mg/dL (70-105); Potassium 3.3 mmol/L (3.5-5.1); Sodium 141 mmol/L (136-145)
[2021-09-29] MEDS: Metoprolol Tartrate 50 MG TAB PER TUBE SCH ×2 (09:27→20:57)
[2021-09-29] MEDS: Apixaban 5 MG TAB PER TUBE SCH ×2 (09:27→20:57)
[2021-09-29] MEDS: Clopidogrel Bisulfate 75 MG TAB PER TUBE SCH (09:27)
[2021-09-29] MEDS: Bumetanide 1 MG TAB PO SCH ×2 (09:27→20:57)
[2021-09-29] MEDS: Amiodarone 200 MG TAB PER TUBE SCH (09:27)
[2021-09-29] MEDS ORDERED: Potassium Bicarbonate/Cit Ac 20 MEQ TAB PER TUBE SCH (14:15)
[2021-09-29] MEDS: Atorvastatin Calcium 40 MG TAB PER TUBE SCH (20:57)
[2021-09-30] MEDS: Metoprolol Tartrate 50 MG TAB PER TUBE SCH ×2 (08:03→20:04)
[2021-09-30] MEDS: Apixaban 5 MG TAB PER TUBE SCH ×2 (08:03→20:04)
[2021-09-30] MEDS: Amiodarone 200 MG TAB PER TUBE SCH (08:03)
[2021-09-30] MEDS: Clopidogrel Bisulfate 75 MG TAB PER TUBE SCH (08:03)
[2021-09-30] MEDS: Bumetanide 1 MG TAB PO SCH ×2 (10:09→20:04)
[2021-09-30] MEDS: Atorvastatin Calcium 40 MG TAB PER TUBE SCH (20:04)
[2021-10-01] MEDS: Clopidogrel Bisulfate 75 MG TAB PER TUBE SCH (08:20)
[2021-10-01] MEDS: Apixaban 5 MG TAB PER TUBE SCH ×2 (08:20→20:41)
[2021-10-01] MEDS: Metoprolol Tartrate 50 MG TAB PER TUBE SCH ×2 (08:20→20:41)
[2021-10-01] MEDS: Amiodarone 200 MG TAB PER TUBE SCH (08:20)
[2021-10-01] MEDS: Bumetanide 1 MG TAB PO SCH ×2 (09:00→20:41)
[2021-10-01] MEDS: Atorvastatin Calcium 40 MG TAB PER TUBE SCH (20:41)
[2021-10-02] MEDS: Clopidogrel Bisulfate 75 MG TAB PER TUBE SCH (07:42)
[2021-10-02] MEDS: Amiodarone 200 MG TAB PER TUBE SCH (07:42)
[2021-10-02] MEDS: Bumetanide 1 MG TAB PO SCH ×2 (07:42→20:18)
[2021-10-02] MEDS: Apixaban 5 MG TAB PER TUBE SCH ×2 (07:43→20:18)
[2021-10-02] MEDS: Metoprolol Tartrate 50 MG TAB PER TUBE SCH ×2 (07:43→20:18)
[2021-10-02] MEDS: Atorvastatin Calcium 40 MG TAB PER TUBE SCH (20:18)
[2021-10-03] MEDS: Amiodarone 200 MG TAB PER TUBE SCH (08:00)
[2021-10-03] MEDS: Metoprolol Tartrate 50 MG TAB PER TUBE SCH ×2 (08:00→19:45)
[2021-10-03] MEDS: Apixaban 5 MG TAB PER TUBE SCH ×2 (08:00→19:45)
[2021-10-03] MEDS: Clopidogrel Bisulfate 75 MG TAB PER TUBE SCH (08:00)
[2021-10-03] MEDS: Bumetanide 1 MG TAB PO SCH ×2 (08:00→19:45)
[2021-10-03] MEDS: Atorvastatin Calcium 40 MG TAB PER TUBE SCH (19:45)
[2021-10-04] MEDS: Metoprolol Tartrate 50 MG TAB PER TUBE SCH ×2 (08:43→21:12)
[2021-10-04] MEDS: Amiodarone 200 MG TAB PER TUBE SCH (08:43)
[2021-10-04] MEDS: Bumetanide 1 MG TAB PO SCH ×2 (08:43→21:12)
[2021-10-04] MEDS: Apixaban 5 MG TAB PER TUBE SCH ×2 (08:43→21:12)
[2021-10-04] MEDS: Clopidogrel Bisulfate 75 MG TAB PER TUBE SCH (08:44)
[2021-10-04] MEDS ORDERED: Bisacodyl 5 MG TAB PO PRN (10:12)
[2021-10-04] MEDS ORDERED: Bisacodyl 5 MG TAB PO SCH (10:15)
[2021-10-04] MEDS: Atorvastatin Calcium 40 MG TAB PER TUBE SCH (21:12)
[2021-10-05 08:09] VITALS: BP 169/77; TEMP 98.1
[2021-10-05] MEDS: Amiodarone 200 MG TAB PER TUBE SCH (09:21)
[2021-10-05] MEDS: Bumetanide 1 MG TAB PO SCH (09:21)
[2021-10-05] MEDS: Apixaban 5 MG TAB PER TUBE SCH (09:21)
[2021-10-05] MEDS: Metoprolol Tartrate 50 MG TAB PER TUBE SCH (09:21)
[2021-10-05] MEDS: Clopidogrel Bisulfate 75 MG TAB PER TUBE SCH (09:21)
== END 2021-10-05 11:05 | DRG 698 ==
LOC: ERS 11:56 → INTOOBSV 14:19 → NEURO 14:19 → OBSVTOIN 09-11 16:39 → T4-A 09-24 10:30
PROVIDERS: ADMIT Internal Medicine; ATTEND Internal Medicine
DX: T83.511A Infection and inflammatory reaction due to indwelling urethral catheter, initial encounter (principal); G93.41 Metabolic encephalopathy; I50.33 Acute on chronic diastolic (congestive) heart failure; I71.01 Dissection of thoracic aorta; N17.9 Acute kidney failure, unspecified; N18.4 Chronic kidney disease, stage 4 (severe); Z20.822 Contact with and (suspected) exposure to COVID-19; N39.0 Urinary tract infection, site not specified; B96.1 Klebsiella pneumoniae [K. pneumoniae] as the cause of diseases classified elsewhere; B96.5 Pseudomonas (aeruginosa) (mallei) (pseudomallei) as the cause of diseases classified elsewhere; I48.91 Unspecified atrial fibrillation; Y84.6 Urinary catheterization as the cause of abnormal reaction of the patient, or of later complication, without mention of misadventure at the time of the procedure; R13.10 Dysphagia, unspecified; E66.01 Morbid (severe) obesity due to excess calories; R00.1 Bradycardia, unspecified; E87.6 Hypokalemia; I25.2 Old myocardial infarction; Z79.899 Other long term (current) drug therapy; Z79.01 Long term (current) use of anticoagulants; Z79.02 Long term (current) use of antithrombotics/antiplatelets; Z95.5 Presence of coronary angioplasty implant and graft; Z87.891 Personal history of nicotine dependence; Z93.1 Gastrostomy status; Z86.74 Personal history of sudden cardiac arrest; I69.391 Dysphagia following cerebral infarction; Z68.36 Body mass index [BMI] 36.0-36.9, adult
CPT/HCPCS: 36415; 51702; 70450; 71045; 80048; 80053; 80307; 81001; 81003; 81015; 82010; 82553; 83605; 83690; 83735; 83880; 84484; 85025; 87040; 87077; 87086; 87186; 93005; 93010; 93306; 96360; 96375; G0378; J1956; J2185; J3475; J3490; U0003; U0005

== ENCOUNTER 2023-01-15 11:42 | Inpatient (IN) | payer MEDICARE, OTHER ==
[2023-01-15 12:20] LABS: #Monocytes 0.3 thou/uL (0.11-0.59); #Neutrophils 6.2 thou/uL (1.40-6.50); %Basophils 0.3 % (0.0-1.0); %Eosinophils 0.4 % (0.0-10.0); %Lymphocytes 10.9 % (21.0-51.0); %Monocytes 4.4 % (0.0-10.0); %Neutrophils 83.7 % (42.0-75.0); Hematocrit 19.1 % (36.0-47.0); Hemoglobin 5.8 g/dL (12.0-16.0); Mean Corpuscular HGB CONC 30.4 g/dL (32.0-36.0); Mean Corpuscular Hemoglobin 35.8 pg (27.0-31.0); Mean Corpuscular Volume 117.9 fl (78.0-98.0); Mean Platelet Volume 10.4 fL (7.4-10.4); Platelet Count 185 10x3/uL (130-400); RBC Distribution Width 18.8 % (11.5-14.5); Red Blood Cell (RBC) Count 1.62 mill/uL (4.20-5.40); White Blood Cell (WBC) Count 7.4 10x3/uL (4.8-10.8)
[2023-01-15 12:47] LABS: Phosphorus 3.3 mg/dL (2.3-4.7)
[2023-01-15 12:49] LABS: ALT (SGPT) Less than 7 U/L (8-55); AST (SGOT) 10 U/L (5-34); Albumin 3.5 g/dL (3.4-4.8); Alkaline Phosphatase 71 U/L (40-110); Anion Gap 14 mmol/L (10-20); BUN (Urea Nitrogen) 44 mg/dL (9.8-20.1); Bilirubin, Total 0.6 mg/dL (0.2-1.2); Calc. Creatinine Clearance 0 mL/min (70-130); Calcium 8.4 mg/dL (7.8-10.44); Carbon Dioxide 31 mmol/L (23-31); Chloride 97 mmol/L (98-107); Estimated GFR 12; Globulin 2.5 g/dL (2.4-3.5); Glucose 129 mg/dL (80-115); Magnesium 2.4 mg/dL (1.6-2.6); Sodium 138 mmol/L (136-145)
[2023-01-15 12:55] LABS: Anisocytosis SLIGHT = 6-15 cells HPF (0-5); CellaVision Operator ID LAB.KB; Hypochromia SLIGHT = 6-15 cells HPF (0-5); Macrocytosis MODERATE=16-30 cells HPF (0-5); Ovalocytes SLIGHT = 2-5 cells HPF (0-1); Platelet Adequacy Comment Platelets Normal; Polychromasia SLIGHT = 2-3 cells HPF (0-2)
[2023-01-15 14:25] LABS: Prothrombin Time 23.6 sec (12.0-14.7)
[2023-01-15] MEDS ORDERED: Calcium Carbonate 500 MG ChewTAB PO PRN (15:08)
[2023-01-15] MEDS ORDERED: Ondansetron ODT 4 MG TAB PO PRN (15:08)
[2023-01-15] MEDS ORDERED: Ondansetron PF 4 MG/2 ML Vial IVP PRN (15:08)
[2023-01-15] MEDS ORDERED: Pantoprazole 40 MG VIAL ONE (15:30)
[2023-01-15] MEDS ORDERED: EPOETIN ALFA-EPBX 10,000 UNITS/ML VIAL SC SCH (16:00)
[2023-01-15 17:08] VITALS: BMI 24.0
[2023-01-15] MEDS: Pantoprazole 40 MG VIAL IVP SCH (20:44)
[2023-01-15 23:22] LABS: Hematocrit 21.3 % (36.0-47.0); Hemoglobin 7.1 g/dL (12.0-16.0)
[2023-01-16 07:08] LABS: #Monocytes 0.3 thou/uL (0.11-0.59); #Neutrophils 4.5 thou/uL (1.40-6.50); %Basophils 0.2 % (0.0-1.0); %Eosinophils 0.4 % (0.0-10.0); %Lymphocytes 13.4 % (21.0-51.0); %Monocytes 5.2 % (0.0-10.0); %Neutrophils 80.4 % (42.0-75.0); Hematocrit 24.7 % (36.0-47.0); Hemoglobin 8.2 g/dL (12.0-16.0); Mean Corpuscular HGB CONC 33.2 g/dL (32.0-36.0); Mean Corpuscular Hemoglobin 33.1 pg (27.0-31.0); Platelet Count 135 10x3/uL (130-400); RBC Distribution Width 24.9 % (11.5-14.5); Red Blood Cell (RBC) Count 2.48 mill/uL (4.20-5.40); White Blood Cell (WBC) Count 5.6 10x3/uL (4.8-10.8)
[2023-01-16 07:37] LABS: ALT (SGPT) Less than 7 U/L (8-55); AST (SGOT) 8 U/L (5-34); Albumin 2.9 g/dL (3.4-4.8); Alkaline Phosphatase 60 U/L (40-110); Anion Gap 15 mmol/L (10-20); BUN (Urea Nitrogen) 50 mg/dL (9.8-20.1); Bilirubin, Total 1.8 mg/dL (0.2-1.2); Calc. Creatinine Clearance 14 mL/min (70-130); Calcium 7.9 mg/dL (7.8-10.44); Carbon Dioxide 27 mmol/L (23-31); Chloride 100 mmol/L (98-107); Estimated GFR 12; Globulin 2.5 g/dL (2.4-3.5); Glucose 101 mg/dL (80-115); Potassium 3.6 mmol/L (3.5-5.1); Protein, Total 5.4 g/dL (5.8-8.1); Sodium 138 mmol/L (136-145)
[2023-01-16 07:51] LABS: Mean Corpuscular Volume 99.6 fl (78.0-98.0)
[2023-01-16] MEDS: Pantoprazole 40 MG VIAL IVP SCH ×2 (09:07→20:32)
[2023-01-16 16:31] LABS: Hematocrit 28.9 % (36.0-47.0); Hemoglobin 9.5 g/dL (12.0-16.0)
[2023-01-16] MEDS ORDERED: GoLYTELY 4,000 ml Bottle PO SCH (17:00)
[2023-01-17 05:08] LABS: #Eosinphils 0.1 thou/uL (0.0-0.7); #Monocytes 0.4 thou/uL (0.11-0.59); #Neutrophils 3.5 thou/uL (1.40-6.50); %Basophils 0.6 % (0.0-1.0); %Eosinophils 1.2 % (0.0-10.0); %Monocytes 7.2 % (0.0-10.0); %Neutrophils 70.6 % (42.0-75.0); Hematocrit 26.8 % (36.0-47.0); Hemoglobin 8.6 g/dL (12.0-16.0); Mean Corpuscular HGB CONC 32.1 g/dL (32.0-36.0); Mean Corpuscular Hemoglobin 32.8 pg (27.0-31.0); Mean Corpuscular Volume 102.3 fl (78.0-98.0); Platelet Count 131 10x3/uL (130-400); RBC Distribution Width 24.5 % (11.5-14.5); Red Blood Cell (RBC) Count 2.62 mill/uL (4.20-5.40); White Blood Cell (WBC) Count 4.9 10x3/uL (4.8-10.8)
[2023-01-17 05:33] LABS: ALT (SGPT) Less than 7 U/L (8-55); AST (SGOT) 19 U/L (5-34); Alkaline Phosphatase 60 U/L (40-110); Anion Gap 16 mmol/L (10-20); BUN (Urea Nitrogen) 46 mg/dL (9.8-20.1); Bilirubin, Total 0.8 mg/dL (0.2-1.2); Calc. Creatinine Clearance 13 mL/min (70-130); Carbon Dioxide 27 mmol/L (23-31); Chloride 99 mmol/L (98-107); Estimated GFR 11; Globulin 2.5 g/dL (2.4-3.5); Glucose 90 mg/dL (80-115); Potassium 3.5 mmol/L (3.5-5.1); Protein, Total 5.5 g/dL (5.8-8.1); Sodium 138 mmol/L (136-145)
[2023-01-17 05:54] LABS: Anisocytosis MARKED = >30 cells HPF (0-5); CellaVision Operator ID lab.sh2; Macrocytosis SLIGHT = 6-15 cells HPF (0-5); Ovalocytes SLIGHT = 2-5 cells HPF (0-1); Platelet Adequacy Comment Platelets Normal; Polychromasia MODERATE = 3-4 cells HPF (0-2)
[2023-01-17] MEDS ORDERED: PROPOFOL 20 ML ONE (07:43)
[2023-01-17] MEDS ORDERED: Lidocaine 1% PF 5 ML VIAL ONE ×2 (07:44→08:25)
[2023-01-17] MEDS ORDERED: Midazolam HCl 2 mg/2 ml Vial ONE (08:20)
[2023-01-17] MEDS ORDERED: fentaNYL PF 100 MCG/2 ML SYRINGE ONE (08:21)
[2023-01-17] MEDS ORDERED: PROPOFOL 200 MG/20 ML VIAL ONE (08:25)
[2023-01-17] MEDS ORDERED: ePHEDrine Sulfate 50 MG/10 ML VIAL ONE (08:38)
[2023-01-17] MEDS ORDERED: Clopidogrel Bisulfate 75 MG TAB PO SCH (09:00)
[2023-01-17] MEDS: Pantoprazole 40 MG VIAL IVP SCH (10:06)
[2023-01-17] MEDS ORDERED: Apixaban 5 MG TAB PO SCH ×2 (10:15→21:00)
[2023-01-17 12:19] LABS: HBSAg Index 0.19 S/CO (0-0.99); Hep B Core Total Ab Non-Reactive (NonReactive); Hep B Core Total Index 0.06 S/CO (0-0.79); Hep B Surf Ag Non-Reactive S/CO (NonReactive); Hep C IgG Ab Non-Reactive S/CO (NonReactive); Hep C Index 0.08 S/CO (0-0.79)
[2023-01-17 12:49] LABS: Hep B Surf AB Reactive (NonReactive)
[2023-01-18 06:46] LABS: #Eosinphils 0.1 thou/uL (0.0-0.7); #Monocytes 0.5 thou/uL (0.11-0.59); #Neutrophils 2.6 thou/uL (1.40-6.50); %Basophils 0.2 % (0.0-1.0); %Eosinophils 1.6 % (0.0-10.0); %Lymphocytes 27.3 % (21.0-51.0); %Monocytes 10.3 % (0.0-10.0); %Neutrophils 60.4 % (42.0-75.0); Hemoglobin 8.5 g/dL (12.0-16.0); Mean Corpuscular HGB CONC 31.5 g/dL (32.0-36.0); Mean Corpuscular Hemoglobin 33.1 pg (27.0-31.0); Mean Corpuscular Volume 105.1 fl (78.0-98.0); Mean Platelet Volume 9.6 fL (7.4-10.4); Platelet Count 125 10x3/uL (130-400); RBC Distribution Width 23.6 % (11.5-14.5); Red Blood Cell (RBC) Count 2.57 mill/uL (4.20-5.40); White Blood Cell (WBC) Count 4.4 10x3/uL (4.8-10.8)
[2023-01-18] MEDS ORDERED: Famotidine 20 MG TAB PO SCH (09:00)
[2023-01-18] MEDS ORDERED: Amiodarone 200 MG TAB PO SCH (09:00)
[2023-01-18 11:32] VITALS: BP 111/56; TEMP 97.3
[2023-01-18] MEDS ORDERED: Sevelamer Carbonate 800 MG TAB PO SCH (12:00)
[2023-01-18] MEDS ORDERED: Non-Formulary Item 1 EACH (Sevelamer Hcl [Sevelamer Hcl] 800 MG Tablet) PO SCH (12:00)
== END 2023-01-18 15:48 | DRG 377 ==
LOC: ERS 11:42 → 2NO 16:47
PROVIDERS: ADMIT Family Medicine; ATTEND Family Medicine
PROC: 30233N1 Transfusion of Nonautologous Red Blood Cells into Peripheral Vein, Percutaneous Approach (ICD-10-PCS; 2023-01-15)
PROC: 0DJ08ZZ Inspection of Upper Intestinal Tract, Via Natural or Artificial Opening Endoscopic (ICD-10-PCS; principal; 2023-01-17)
PROC: 0DBP8ZZ Excision of Rectum, Via Natural or Artificial Opening Endoscopic (ICD-10-PCS; 2023-01-17)
PROC: 3E033XZ Introduction of Vasopressor into Peripheral Vein, Percutaneous Approach (ICD-10-PCS; 2023-01-17)
DX: K92.1 Melena (principal); N18.6 End stage renal disease; I13.2 Hypertensive heart and chronic kidney disease with heart failure and with stage 5 chronic kidney disease, or end stage renal disease; D62 Acute posthemorrhagic anemia; I50.32 Chronic diastolic (congestive) heart failure; K62.1 Rectal polyp; Z99.3 Dependence on wheelchair; I48.91 Unspecified atrial fibrillation; I95.9 Hypotension, unspecified; H53.8 Other visual disturbances; D63.1 Anemia in chronic kidney disease; E78.5 Hyperlipidemia, unspecified; D50.9 Iron deficiency anemia, unspecified; R53.1 Weakness; I25.2 Old myocardial infarction; Z95.828 Presence of other vascular implants and grafts; Z79.899 Other long term (current) drug therapy; Z86.73 Personal history of transient ischemic attack (TIA), and cerebral infarction without residual deficits; Z98.890 Other specified postprocedural states; Z87.891 Personal history of nicotine dependence
CPT/HCPCS: 36415; 36416; 36430; 80053; 82274; 83735; 84100; 85025; 85610; 85730; 86704; 86850; 86900; 86901; 93005; 94760; 96374; C9113; J2250; J2704; P9016; Q5106

== ENCOUNTER 2023-12-27 11:02 | Observation (INO) | payer MEDICARE, MEDICAID ==
[2023-12-27] MEDS ORDERED: Ondansetron PF 4 MG/2 ML Vial ONE (12:05)
[2023-12-27 12:14] LABS: Bacteria/HPF None Seen HPF (None Seen); Bilirubin Negative (Negative); Blood, Urine Negative (Negative); CAUTI Indications for Culture Dysuria,urgency,freq; Clarity Clear (Clear); Glucose, Urine (Dipstick) Normal (Negative); Ketone, Urine Negative (Negative); Leukocyte Negative Leu/uL (Negative); Nitrite Negative (Negative); Protein, Urine (Dipstick) Negative (Neg-Trace); RBC/HPF 0-3 HPF (0-3); Specific Gravity, Urine 1.008 (1.002-1.036); Squamous Epithelial 0-3 HPF (0-3); Urobilinogen Normal mg/dL (Less than 2); WBC/HPF 0-3 HPF (0-3)
[2023-12-27 12:21] LABS: Urine Culture Reflex No No
[2023-12-27 12:34] LABS: Analyzer IN Cardio ER; Base Excess 7.9 mEq/L (-2.0 to +3.0); Calcium, Ionized (venous) 1.07 mmol/L (1.16-1.32); Chloride (VBG) 97 mmol/L (98-106); Hematocrit-VBG 33 % (36.0-47.0); Hemoglobin (Hb) 11.3 g/dL (11.7-16.0); Potassium (VBG) 3.26 mmol/L (3.70-5.30); Sodium 141 mmol/L (133-146); pH (venous) 7.491 (7.32-7.43)
[2023-12-27 12:35] LABS: #Basophils 0.03 10x3/uL (0.0-0.2); %Basophils 0.5 % (0.0-1.0); %Eosinophils 2.5 % (0.0-10.0); %Lymphocytes 11.5 % (21.0-51.0); %Monocytes 6.5 % (0.0-10.0); %Neutrophils 78.7 % (42.0-75.0); Hematocrit 31.6 % (36.0-47.0); Hemoglobin 10.1 g/dL (12.0-16.0); Mean Corpuscular Hemoglobin 34.9 pg (27.0-31.0); Mean Corpuscular Volume 109.3 fL (78.0-98.0); Mean Platelet Volume 10.3 fL (7.4-10.4); Platelet Count 173 10x3/uL (130-400); RBC Distribution Width 14.8 % (11.5-14.5); Red Blood Cell (RBC) Count 2.89 mill/uL (4.20-5.40)
[2023-12-27 13:07] LABS: ALT (SGPT) 15 U/L (8-55); AST (SGOT) 17 U/L (5-34); Albumin 3.6 g/dL (3.4-4.8); Alkaline Phosphatase 80 U/L (40-110); Anion Gap 18 mmol/L (10-20); BUN (Urea Nitrogen) 91 mg/dL (9.8-20.1); Bilirubin, Total 0.5 mg/dL (0.2-1.2); Calc. Creatinine Clearance 0 mL/min (70-130); Calcium 9.2 mg/dL (7.8-10.44); Carbon Dioxide 28 mmol/L (23-31); Chloride 100 mmol/L (98-107); Estimated GFR 10; Globulin 3.1 g/dL (2.4-3.5); Glucose 148 mg/dL (80-115); Lipase 66 U/L (8-78); Magnesium 2.5 mg/dL (1.6-2.6); Potassium 3.2 mmol/L (3.5-5.1); Protein, Total 6.7 g/dL (5.8-8.1); Sodium 143 mmol/L (136-145)
[2023-12-27 13:11] LABS: Troponin I Less than 0.010 ng/mL (< 0.028)
[2023-12-27] MEDS ORDERED: Ondansetron ODT 4 MG TAB PO PRN ×2 (15:28→15:41)
[2023-12-27] MEDS ORDERED: Calcium Carbonate 500 MG ChewTAB PO PRN (15:41)
[2023-12-27] MEDS ORDERED: HYDROcodone/Acetaminophen 5/325 mg Tablet PO PRN (15:41)
[2023-12-27] MEDS ORDERED: Loperamide HCl 2 MG CAP PO PRN (15:41)
[2023-12-27] MEDS ORDERED: Hydrocortisone 1% Cream 30 GM TUBE TOP PRN (15:45)
[2023-12-27 17:29] LABS: HIV (1/2) Antibody/Antigen NONREACTIVE (NonReactive); HIV 1/2 INDEX 0.05 S/CO (<1.00); Thyroid Stimulating Hormone 1.0558 uIU/mL (0.35-4.94); Vitamin B12 1224 pg/mL (211-911)
[2023-12-27] MEDS: Sevelamer Carbonate 800 MG TAB PO SCH (17:35)
[2023-12-27 18:00] VITALS: BMI 21.6
[2023-12-28] MEDS: Atorvastatin Calcium 40 MG TAB PO SCH (00:11)
[2023-12-28] MEDS: Potassium Chloride 20 MEQ TAB PO SCH (00:11)
[2023-12-28] MEDS: Heparin 5,000 UNITS/ML VIAL SC SCH (00:11)
[2023-12-28 05:57] LABS: #Basophils 0.03 10x3/uL (0.0-0.2); %Basophils 0.5 % (0.0-1.0); %Eosinophils 3.3 % (0.0-10.0); %Lymphocytes 21.9 % (21.0-51.0); %Monocytes 8.3 % (0.0-10.0); %Neutrophils 65.8 % (42.0-75.0); Hematocrit 27.9 % (36.0-47.0); Hemoglobin 8.9 g/dL (12.0-16.0); Mean Corpuscular HGB CONC 31.9 g/dL (32.0-36.0); Mean Corpuscular Volume 109.8 fL (78.0-98.0); Mean Platelet Volume 9.8 fL (7.4-10.4); Platelet Count 144 10x3/uL (130-400); RBC Distribution Width 15.2 % (11.5-14.5); Red Blood Cell (RBC) Count 2.54 mill/uL (4.20-5.40)
[2023-12-28 06:18] LABS: ALT (SGPT) 13 U/L (8-55); AST (SGOT) 16 U/L (5-34); Albumin 3.1 g/dL (3.4-4.8); Alkaline Phosphatase 58 U/L (40-110); Anion Gap 17 mmol/L (10-20); BUN (Urea Nitrogen) 36 mg/dL (9.8-20.1); Bilirubin, Total 0.4 mg/dL (0.2-1.2); Calc. Creatinine Clearance 18 mL/min (70-130); Calcium 8.5 mg/dL (7.8-10.44); Carbon Dioxide 23 mmol/L (23-31); Chloride 103 mmol/L (98-107); Estimated GFR 19; Globulin 2.5 g/dL (2.4-3.5); Glucose 89 mg/dL (80-115); Potassium 4.1 mmol/L (3.5-5.1); Protein, Total 5.6 g/dL (5.8-8.1); Sodium 139 mmol/L (136-145)
[2023-12-28] MEDS: Famotidine 20 MG TAB PO SCH (08:57)
[2023-12-28] MEDS: Folic Acid/Vit B Comp W-C PO SCH (08:57)
[2023-12-28] MEDS ORDERED: Amiodarone 200 MG TAB PO SCH (09:00)
[2023-12-28] MEDS: Polyethylene Glycol 3350 17 GM Packet PO PRN (10:43)
[2023-12-28 11:38] LABS: Syphilis Antibody Nonreactive (Nonreactive); Syphilis Antibody Index 0.09 S/CO (<1.00 Non-Reactive)
[2023-12-28 14:54] VITALS: BP 112/68; TEMP 98.5
[2023-12-29] MEDS ORDERED: Amiodarone 200 MG TAB PO SCH (09:00)
== END 2023-12-28 15:08 ==
LOC: ERS 11:02 → T4-A 15:31
PROVIDERS: ADMIT Student in an Organized Health Care Education/Training Program; ATTEND Student in an Organized Health Care Education/Training Program
DX: R53.1 Weakness (principal); R41.82 Altered mental status, unspecified; I48.91 Unspecified atrial fibrillation; I48.92 Unspecified atrial flutter; R53.81 Other malaise; I13.2 Hypertensive heart and chronic kidney disease with heart failure and with stage 5 chronic kidney disease, or end stage renal disease; I50.30 Unspecified diastolic (congestive) heart failure; N18.6 End stage renal disease; R29.6 Repeated falls; E87.6 Hypokalemia; L20.9 Atopic dermatitis, unspecified; I25.10 Atherosclerotic heart disease of native coronary artery without angina pectoris; I71.00 Dissection of unspecified site of aorta; Z98.890 Other specified postprocedural states; Z95.5 Presence of coronary angioplasty implant and graft; Z99.2 Dependence on renal dialysis; Z79.899 Other long term (current) drug therapy
CPT/HCPCS: 71045; 80053; 81001; 82607; 82805; 83605; 83690; 83735; 84484; 85025; 86780; 87040; 87086; 87389; 93005; 96372; 96374; 99285; G0378 ×3; J1644; J2405; 36415; 84443